=== PATIENT | male | born 1995 | race Caucasian/White ===

== ENCOUNTER → 2020-07-12 | Outpatient (CLI) | payer OTHER, SELFPAY | END | disposition home or self-care (01) | LOC: LABSPEC 15:34 | PROVIDERS: PCP Family Medicine; Visit Provider Physician Assistant Surgical | DX: R50.9 Fever, unspecified (principal) | CPT/HCPCS: 87635; U0005; U0003 ==

== ENCOUNTER 2020-07-31 18:27 | Emergency (ER) | payer OTHER, SELFPAY ==
[2020-07-31 18:30] VITALS: BP 139/88; PULSE 79; RESP 24; TEMP 36.7; O2SAT 99; BMI 42.5
--- NOTE | 2020-07-31 18:57 | CT_ITS ---
EXAM: CT ABDOMEN AND PELVIS WITHOUT INTRAVENOUS CONTRAST CLINICAL INDICATION: RIGHT FLANK PAIN, NAUSEA/VOMITING TECHNIQUE: Helically acquired images were obtained of the abdomen and pelvis without intravenous contrast. This CT exam was performed using one or more of the following dose reduction techniques: automated exposure control, adjustment of the mA and/or kV according to patient size, and/or use of iterative reconstruction technique. This report was created using [employer] report generation technology. COMPARISON: 01/21/2015 FINDINGS: LOWER THORAX: Unremarkable. Lung bases are clear. No cardiomegaly. No significant pericardial effusion. ABDOMEN: LIVER: Unremarkable. Homogeneous. GALLBLADDER AND BILE DUCTS: Unremarkable. No calcified gallstones. No gallbladder distention or wall edema. No intra- or extrahepatic biliary ductal dilation. PANCREAS: Unremarkable. No focal cystic mass. SPLEEN: Mild splenomegaly. ADRENALS: Unremarkable. No nodules. KIDNEYS AND URETERS: Mild right hydronephrosis with 4 mm calculus of the proximal right ureter at superior L4 endplate. Normal renal size and position. STOMACH AND BOWEL: Unremarkable. No stomach or bowel distention. No focal inflammatory change. PELVIS: APPENDIX: No evidence of acute appendicitis. BLADDER: Unremarkable. REPRODUCTIVE: Unremarkable as visualized. No mass. ABDOMEN and PELVIS: INTRAPERITONEAL SPACE: Unremarkable. No ascites or other fluid collection. No free air. BONES/JOINTS: Unremarkable. No suspicious lytic or blastic abnormality. SOFT TISSUES: Mild bilateral gynecomastia. No discrete abdominal or pelvic wall hernia. VASCULATURE: Unremarkable. Abdominal aorta is non-dilated. LYMPH NODES: Unremarkable. No enlarged lymph nodes. CT/Abdomen/Pelvis without Cont IMPRESSION: 1. 4 mm proximal right ureter calculus with mild hydronephrosis. 2. Mild bilateral gynecomastia. 3. Mild splenomegaly. Electronically Signed: Robb Puente MD ([place]) at 19:51 EST , Service support ,
--- NOTE | 2020-07-31 18:58 | ED.VISSUMM ---
- ER Visit Summary Date of Service: 07/31/20 Chief Complaint: Right flank pain History of Present Illness: The patient is a 24 M with a past medical history. Patient states he had sudden onset right flank pain has been continuous since 1130 last night. Associated nausea vomiting today. No fever or chills. No dysuria. No prior history. No history of kidney stones. No trauma. Physical Examination: Young male plan pain vital signs stable afebrile. HEENT exam unremarkable. Neck nontender no lymphadenopathy. Lungs are clear. Heart regular rhythm no murmur. Abdomen soft nontender normal bowel sounds no peritoneal signs. Back nontender no CVA tenderness. Extremities moves all 4. No edema. Neurologically is awake alert with no focal motor deficits. Test Results: CBC white count 1.5. Hemoglobin 15. Chemistries normal normal creatinine gap. Patient has blood consistent with a kidney stone in the urinalysis. CT flank without contrast shows a right mid ureter 4 mm ureteral calculi with hydronephrosis. There is also incidental finding of mild splenomegaly. This is read by the radiologist and reviewed by me. Repeat exam the patient is doing well at 8:11 PM. Currently is pain-free. I went over all his test results of both he and his significant other. Emergency Department Course and Treatment: Young male acute right flank pain suspect kidney stone versus other etiologies. Treated with IV Dilaudid, IV Toradol, IV Zofran and IV fluids. CAT scan labs being obtained. Treatment Plan: [place] and Motrin for pain. Strain urine for stone. Plenty of fluids. Return if worse. Follow-up your primary as needed. Disposition: discharge Impression: Acute right flank pain secondary to right 4 mm mid ureteral calculi with hydronephrosis This note was generated with [employer] dictation software. It may contain incorrect words, spelling, and punctuation that were not noted in review of the chart prior to signing ED Disposition - Plan for ED Patient: Referrals: Israel Duarte MD [Primary Care Provider] -
[2020-07-31] MEDS: Ketorolac 30 MG/ML Syringe IV (19:05)
[2020-07-31] MEDS: Ondansetron 4 MG/2 ML Vial IV (19:05)
[2020-07-31] MEDS: 0.9% Normal Saline 1,000 ML 1000 ML IV (19:05)
[2020-07-31] MEDS: HYDROmorphone 1 MG/ML Syringe IV (19:06)
[2020-07-31 19:12] LABS: Absolute Lymphocyte Count 4.07 X10^3/uL (0.83-4.51); Basophil# 0.02 X10^3/uL; Basophil% 0.2 % (0-1); Eosinophil# 0.31 X10^3/uL; Eosinophils% 2.7 % (0-5); Hematocrit 46.6 % (40-54); Hemoglobin 15.5 g/dL (13.0-16.5); Lymphocyte # 4.07 X10^3/ul (4.0); Lymphocyte % 35.5 % (19-41); Mean Corp Hgb Conc 33.3 g/dL (32-36); Mean Corpuscular Hgb 27.5 pg (27.0-32.0); Mean Corpuscular Volume 82.6 fL (80-94); Mean Platelet Vol. 10.6 fl (6.2-12.0); Monocyte# 1.01 X10^3/uL; Monocyte% 8.8 % (0-10); NRBC Flagged by Analyzer 0 % (0-5); Neutrophil # 6.04 X10^3/uL (2.7-7.7); Neutrophil % 52.5 % (47-70); Platelet Count 243 K/mm3 (150-450); RBC Distribution Width CV 13.2 % (11.6-14.6); RBC Distribution Width SD 39.2 fl (35.1-43.9); Red Blood Count 5.64 M/mm3 (4.6-6.2); White Blood Count 11.5 K/mm3 (4.4-11.0)
[2020-07-31 19:21] LABS: Anion Gap 7 (5-15); BUN 16 mg/dL (7-18); BUN/Creat Ratio 15.7 RATIO (10-20); Calcium,Total 9.1 mg/dL (8.5-10.1); Chloride 107 mmol/L (98-107); Creatinine, Serum 1.02 mg/dL (0.70-1.30); EST Glomerular Filtration Rate 93 mL/min (>60); Est Glom Filt Rate - Afr Amer 113 mL/min (>60); Glucose 141 mg/dL (74-106); Potassium 3.6 mmol/L (3.5-5.1); Sodium Level 139 mmol/L (136-145)
[2020-07-31 20:00] VITALS: RESP 16
[2020-07-31 20:04] LABS: Color, Urine Yellow (Yellow); Glucose, Dipstick Normal (Normal); Ketone-Dipstick Negative (Negative); Leukocyte Esterase-Dipstick Negative /ul (Negative); Mucous, Urine 0 SEEN /hpf (<or=2+); Nitrite-Dipstick Negative (Negative); Occult Blood-Urine 50 /ul (Negative); Protein-Dipstick Negative (Negative); Specific Gravity, Urine 1.025 (1.002-1.030); Squamous Epithelial Cells - UA 0 SEEN /hpf (0-5); Urine Bilirubin Dipstick Negative (Negative); Urine Clarity Clear (Clear); Urine Urobilinogen Normal (Normal); White Blood Cells 0 SEEN /hpf (0-5)
[2020-07-31 20:11] LABS: Bacteria RARE /hpf (None Seen); Red Blood Cells-Urine 0-5 SEEN /hpf (0-5)
--- NOTE | 2020-07-31 20:17 | DCINST.ED_ITS ---
ED Disposition - Plan for ED Patient: Disposition: Home or Assisted Living Instructions: ED Kidney Stone w/ Colic Prescriptions: Hydrocodone Bitart/Apap 5-325 [[place] 5MG-325MG] 1 - 2 tab PO Q4H PRN PRN 4 Days #14 tab PRN Reason: Pain Prescription Printed Referrals: Israel Duarte MD [Primary Care Provider] - 3-5 Days if not improving Additional Instructions: Plenty of Fluids and rest. [place] which is a narcotic pain medication for pain and Motrin. Strain your urine for the past stone. Follow-up with not improving. Return to the emergency department if intractable pain, intractable vomiting or fever.
== END 2020-07-31 20:28 | disposition home or self-care (01) ==
PROVIDERS: Emergency Provider Emergency Medicine; PCP Family Medicine
DX: N13.2 Hydronephrosis with renal and ureteral calculous obstruction (principal); R16.1 Splenomegaly, not elsewhere classified
CPT/HCPCS: 74176; 80048; 81001; 85025; 96361; 96374; 96375; 99285; J7030; A4216; J2405

== ENCOUNTER 2020-08-03 06:44 | Emergency (ER) | payer OTHER, SELFPAY ==
[2020-08-03 06:44] VITALS: BP 161/95; PULSE 109; RESP 18; TEMP 36.8; O2SAT 97; BMI 43.2
--- NOTE | 2020-08-03 07:10 | CT_ITS ---
STUDY: CT ABDOMEN AND PELVIS WITHOUT CONTRAST REASON FOR EXAM: Male, 24 years old. RIGHT FLANK PAIN. known stone on right 4 days ago RADIATION DOSAGE (If Supplied By Facility): CTDIvol = ( 32.59 ) mGy, DLP = ( 2019.27 ) mGycm TECHNIQUE: Transaxial images were obtained from the dome of the diaphragm to the symphysis pubis without oral contrast, and without intravenous contrast. Sagittal and coronal images were reconstructed. Individualized dose optimization techniques were used for this CT. COMPARISON: 07/31/2019. FINDINGS: Lung bases: Unremarkable. Heart: Unremarkable. Liver: Mild hepatic steatosis. Gallbladder/biliary ducts: Unremarkable. Pancreas: Unremarkable. Spleen: Mild splenomegaly. Adrenal glands: Unremarkable. Kidneys/ureters/bladder: Migration of previously seen 4 mm proximal ureteral stone now residing at the ureterovesicular junction (axial image 183 series 2). Moderate right hydroureteronephrosis with perinephric/periureteral fat stranding. Normal left kidney and ureter. Normal urinary bladder. Prostate: Unremarkable. Large bowel/small bowel: No acute large bowel or small bowel process. Appendix: Unremarkable (axial image 146 series 2). Gastroesophageal junction/stomach: Unremarkable. Retroperitoneum/lymph nodes: No intra-abdominal free air. No ascites. No pathologically enlarged lymph nodes. Vascular: Unremarkable. Osseous structures: Minimal degenerative features. No acute process. Subcutaneous/soft tissues: Fat-containing umbilical hernia. Gynecomastia. No acute process. CT/Abdomen/Pelvis without Cont IMPRESSION: 4 mm right UVJ stone with moderate right hydroureteronephrosis (migrated distally from prior exam) Right-sided perinephric/periureteral fat stranding (correlate urinalysis) Additional nonemergent findings as above Electronically Signed: Fredis Franks DO at 8:02 EST Tel , Service support ,
--- NOTE | 2020-08-03 07:12 | ED.DCSUM_ITS ---
- ER Visit Summary Date of Service: 08/03/20 Chief Complaint: Right flank pain History of Present Illness: The patient is a 24 M recent diagnosis with a right mid ureteral 4 mm stone on 07/31/2020. He was discharged home and was doing well the basis since that time he has had continued pain is worse in the last 24 hours. Nausea and vomiting yesterday. No fever. No gross hematuria. He is still urinating. Denies other complaints. Was written for [place] on his most recent ER visit diagnosis and states is not controlling his pain. Physical Examination: Male complain of pain vital signs stable afebrile. HEENT exam unremarkable. Lungs clear to auscultation bilaterally. Heart regular rhythm rate about 105-1 10 no murmur. Abdomen soft nontender normal bowel sounds no peritoneal signs. Moving all 4 extremities. No edema. Back nontender no CVA tenderness. Neurologically is awake alert with no focal motor deficits. Test Results: CBC shows a white count 11.4. Hemoglobin 15. Chemistries unremarkable normal creatinine and gap of 11, 1.1 and 5. Showed small blood no signs of infection. CT flank showed the same 4 mm stone that was previously right mid ureter now at the right UVJ just proximal to the bladder. There is moderate hydronephrosis and hydroureter. I discussed this with the patient and urology and are comfortable with him being discharged home. She is pain-free on repeat exam. Emergency Department Course and Treatment: Young male with continued right flank pain after being diagnosed with a right mid ureteral calculi approximately 3 to 4 days ago. He will be treated with IV fluids, Zofran for nausea, IV Toradol and IV Dilaudid for pain. Repeat labs and CAT scan are being obtained. Treatment Plan: He has [place] at home for pain. I also written for Toradol. Katey jacintoer and follow-up with urology as needed return if worse. Disposition: Discharge Impression: Acute and continued right flank pain Al to migrating right UVJ 4 mm stone with hydroureter and hydronephrosis Recently diagnosed with 4 mm right mid ureteral stone This note was generated with [employer] dictation software. It may contain incorrect words, spelling, and punctuation that were not noted in review of the chart prior to signing ED Disposition - Plan for ED Patient: Disposition: Home or Assisted Living Instructions: ED Kidney Stone w/ Colic Prescriptions: Ketorolac [Toradol] 10 mg PO Q4H #7 tab Prescription Printed Referrals: Henry Estrada MD [STAFF PHYSICIAN] - 1-2 Days if not improving Additional Instructions: Your stones are ready down by your bladder it should pass in your bladder and be urinated out in the next 1 to 2 days. Continue your [place] for pain and Toradol. Plenty of fluids. Follow-up with Dr. Michael Estrada as needed for urology. Strain your urine to see if the stone passes.
[2020-08-03] MEDS: Ketorolac 30 MG/ML Syringe IV (07:25)
[2020-08-03] MEDS: HYDROmorphone 1 MG/ML Syringe IV (07:25)
[2020-08-03] MEDS: Ondansetron 4 MG/2 ML Vial IV (07:25)
[2020-08-03] MEDS: 0.9% Normal Saline 1,000 ML 1000 ML IV (07:28)
[2020-08-03 07:30] LABS: Absolute Lymphocyte Count 1.25 X10^3/uL (0.83-4.51); Absolute Neutrophil Count 9.1 X10^3/uL (2.0-7.7); Basophil# 0.01 X10^3/uL; Basophil% 0.1 % (0-1); Eosinophil# 0.04 X10^3/uL; Eosinophils% 0.4 % (0-5); Hematocrit 44.8 % (40-54); Hemoglobin 15.2 g/dL (13.0-16.5); Lymphocyte # 1.25 X10^3/ul (4.0); Mean Corp Hgb Conc 33.9 g/dL (32-36); Mean Corpuscular Volume 82.7 fL (80-94); Mean Platelet Vol. 10.1 fl (6.2-12.0); Monocyte# 0.96 X10^3/uL; Monocyte% 8.4 % (0-10); NRBC Flagged by Analyzer 0 % (0-5); Neutrophil % 79.7 % (47-70); Platelet Count 213 K/mm3 (150-450); RBC Distribution Width CV 13.2 % (11.6-14.6); RBC Distribution Width SD 39.5 fl (35.1-43.9); Red Blood Count 5.42 M/mm3 (4.6-6.2); White Blood Count 11.4 K/mm3 (4.4-11.0)
[2020-08-03 07:40] LABS: Bacteria 0 SEEN /hpf (None Seen); Mucous, Urine 0 SEEN /hpf (<or=2+); Red Blood Cells-Urine 0 SEEN /hpf (0-5); White Blood Cells 0 SEEN /hpf (0-5)
[2020-08-03 07:45] LABS: Color, Urine Yellow (Yellow); Glucose, Dipstick Normal (Normal); Ketone-Dipstick 5 mg/dl (Negative); Leukocyte Esterase-Dipstick Negative /ul (Negative); Nitrite-Dipstick Negative (Negative); Occult Blood-Urine 25 /ul (Negative); Protein-Dipstick Negative (Negative); Urine Bilirubin Dipstick Negative (Negative); Urine Clarity Clear (Clear); Urine Urobilinogen Normal (Normal)
[2020-08-03 07:46] LABS: Anion Gap 5 (5-15); BUN 11 mg/dL (7-18); BUN/Creat Ratio 9.4 RATIO (10-20); Calcium,Total 9.1 mg/dL (8.5-10.1); Chloride 102 mmol/L (98-107); Creatinine, Serum 1.17 mg/dL (0.70-1.30); EST Glomerular Filtration Rate 80 mL/min (>60); Est Glom Filt Rate - Afr Amer 96 mL/min (>60); Estimated Creatinine Clearance 111.24 ml/min; Glucose 103 mg/dL (74-106); Potassium 3.8 mmol/L (3.5-5.1); Sodium Level 135 mmol/L (136-145)
[2020-08-03 07:55] LABS: Squamous Epithelial Cells - UA 0-5 SEEN /hpf (0-5)
--- NOTE | 2020-08-03 07:55 | ED.DEP ---
ED Disposition - Plan for ED Patient: Disposition: Home or Assisted Living Instructions: ED Kidney Stone w/ Colic Prescriptions: Ketorolac [Toradol] 10 mg PO Q4H #7 tab Prescription Printed Referrals: Henry Estrada MD [STAFF PHYSICIAN] - 1-2 Days if not improving Additional Instructions: Your stones are ready down by your bladder it should pass in your bladder and be urinated out in the next 1 to 2 days. Continue your [place] for pain and Toradol. Plenty of fluids. Follow-up with Dr. Michael Estrada as needed for urology. Strain your urine to see if the stone passes.
[2020-08-03 08:36] VITALS: BP 146/81; PULSE 104; RESP 15; O2SAT 98
== END 2020-08-03 08:37 | disposition home or self-care (01) ==
PROVIDERS: Emergency Provider Emergency Medicine; PCP Family Medicine
DX: N13.2 Hydronephrosis with renal and ureteral calculous obstruction (principal); Z87.442 Personal history of urinary calculi
CPT/HCPCS: 74176; 80048; 81001; 85025; 96361; 96374; 96375; 99283; J7030; A4216; J2405

== ENCOUNTER 2021-04-08 11:32 | Emergency (ER) | payer OTHER, SELFPAY ==
[2021-04-08 11:32] VITALS: BP 148/75; PULSE 88; RESP 18; TEMP 36.5; O2SAT 97; BMI 38.5
--- NOTE | 2021-04-08 11:40 | RAD_ITS ---
STUDY: X-RAY - LEFT ANKLE REASON FOR EXAM: Left ankle pain and swelling, left ankle injury. TECHNIQUE: 3 view(s) of the ankle. COMPARISON: None. FINDINGS: Normal visualized distal tibia and fibula. Normal medial and lateral malleoli. There is a tibiotalar joint effusion. Normal visualized talus and calcaneus. The visualized subtalar, talonavicular, calcaneocuboid and tarsal articulations are normal. There is soft tissue swelling overlying the lateral malleolus. RAD/Ankle min 3 Views IMPRESSION: Tibiotalar joint effusion. No demonstrated fracture. Electronically Signed: Sampson Beauchamp MD at 12:12 EDT Tel , Service support ,
[2021-04-08 13:20] VITALS: PULSE 78; RESP 14
--- NOTE | 2021-04-08 13:29 | EX.ED.DYSGE1 ---
HPI History of Present Illness Chief Complaint: Lower Extremity Injury Informant: patient Narrative Narrative: 25-year-old male presenting with left ankle pain. Patient states he was coming down off a ladder and slipped and fell down approximately 2 steps. He did not hit his head or lose consciousness. He complains of left ankle pain. Denies other injuries. He has been able to ambulate with pain. PFSH PFSH Medical History no medical history Home Medications NK 04/08/21 [History Last Taken Unknown] Allergy/AdvReac Type Severity Reaction Status Date / Time No Known Allergies Allergy Verified 04/08/21 11:32 Social History Smoking Status: Former smoker ROS ROS ED Constitutional Constitutional ED: Denies fever(s) Cardiovascular Cardiovascular: Denies chest pain Respiratory/Chest Respiratory/Chest: Denies dyspnea Gastrointestinal Gastrointestinal: Denies abdominal pain Musculoskeletal Musculoskeletal: Reports other Details: left ankle pain ; Denies myalgias Integumentary Denies rash Neurologic Neurologic: Denies headache(s) EXAM Physical Exam Const Vital Signs: 04/08/21 11:32 04/08/21 13:20 Temperature 97.7 F L Temperature Source Temporal Pulse Rate 88 78 Respiratory Rate 18 14 Blood Pressure 148/75 H Blood Pressure Mean 99 Pulse Ox 97 Oxygen Delivery Method Room Air Positive well nourished and well developed General Appearance ED: well developed HEENT Reports normocephalic and head/scalp atraumatic Neck supple General: Negative for tenderness Chest Wall inspection of chest normal Resp normal respiratory effort Cardio regular rate and regular rhythm no CVA tenderness Extremity Extremity Narrative: Left lateral ankle tenderness and swelling. No fifth metatarsal tenderness. No Achilles tendon tenderness. No proximal fibula tenderness. Normal pulses. Neuro oriented x3 Sensorium / Orientation: alert Psych mental status grossly normal MDM MDM MDM Narrative Medical decision making narrative: Left ankle x-ray read by myself and radiology shows no demonstrated fracture. Patient is given Aircast, declines crutches. Advised to ice, elevate, use NSAIDs for pain. Advised to follow-up with primary care physician. Advised return to ED for worsening complaints. Radiography Diagnostic Testing: Clinical Impression(s) from Imaging Studies Ankle X-Ray 04/08/21 11:40 IMPRESSION: Tibiotalar joint effusion. No demonstrated fracture. Electronically Signed: Sampson Beauchamp MD at 12:12 EDT Tel , Service support , Discharge Plan Triage Chief Complaint: Lower Extremity Injury ED Provider: Saranya Lang Dx/Rx/DC Orders Clinical Impression: Left ankle sprain Instructions: ED Sprain Ankle W X Ray Prescriptions: No Action NK RF: 0 Primary Care Provider: Israel Duarte Referrals: Israel Duarte MD [Primary Care Provider] - Disposition Disposition: Home, Self Care
== END 2021-04-08 14:21 | disposition home or self-care (01) ==
LOC: ED 13:41
PROVIDERS: Emergency Provider Emergency Medicine; PCP Family Medicine
DX: S93.402A Sprain of unspecified ligament of left ankle, initial encounter (principal); W11.XXXA Fall on and from ladder, initial encounter; Y93.9 Activity, unspecified; Y92.9 Unspecified place or not applicable; Y99.9 Unspecified external cause status; Z87.891 Personal history of nicotine dependence
CPT/HCPCS: 73610; 99283

== ENCOUNTER 2021-07-09 10:15 | Emergency (ER) | payer OTHER, SELFPAY ==
[2021-07-09 10:16] VITALS: BP 176/100; PULSE 96; RESP 16; TEMP 36.2; O2SAT 99; BMI 38.7
--- NOTE | 2021-07-09 10:48 | RAD_ITS ---
STUDY: X-RAY CHEST REASON FOR EXAM: Male, 25 years old. chest pain TECHNIQUE: AP COMPARISON: None. FINDINGS: EKG leads project over the chest. The lungs are clear and expanded. There is no demonstrated pleural abnormality. Normal size heart. Normal mediastinum and cristina. Normal visualized pulmonary arteries. Normal visualized aortic arch and descending thoracic aorta. Normal visualized thoracic spine. Normal visualized ribs, clavicles, and shoulders. There is no demonstrated abnormality of the visualized soft tissue structures of the upper abdomen. RAD/Chest 1 View (Portable) IMPRESSION: Nonacute portable x-ray examination of the chest. Electronically Signed: Robb Puente MD ([place]) at 12:03 EST , Service support ,
--- NOTE | 2021-07-09 10:48 | EKG12_ITS ---
Test Reason : PALPS Blood Pressure : / mmHG Vent. Rate : 084 BPM Atrial Rate : 084 BPM P-R Int : 154 ms QRS Dur : 098 ms QT Int : 364 ms P-R-T Axes : 059 058 032 degrees QTc Int : 430 ms Sinus rhythm with occasional Premature ventricular complexes Otherwise normal ECG Confirmed by FANNY VINCENT, VIKKI ([id number]), society editor DANUTA MARTINEZ ([id number]) on 07/11/2021 11:17:55 AM Referred By: CORRINA Confirmed By:VIKKI ESCOBEDO MD
--- NOTE | 2021-07-09 10:54 | EX.ED.DYSGE1 ---
HPI History of Present Illness Chief Complaint: Palpitations Informant: patient Narrative Narrative: 25-year-old male states for the past couple days he has had a bubble sensation in his chest. He states that it is constant and he feels frequent sensation that a bubble is coming up out of his chest. He denies any pain with it no shortness of breath. He states he has not been taking any significant amount of caffeine or stimulants. He denies any fevers or chills. No history of heart issues. PFSH PFS Home Medications NK 04/08/21 [History Last Taken Unknown] Allergy/AdvReac Type Severity Reaction Status Date / Time No Known Allergies Allergy Verified 07/09/21 10:18 Social History Smoking Status: Former smoker ROS ROS ED Constitutional Constitutional ED: Denies chills, fever(s) or weight loss Eyes Eyes: Denies change in vision or diplopia ENT ENT ED: Denies ear pain, rhinorrhea or sore throat Cardiovascular Cardiovascular: Reports palpitations; Denies chest pain, orthopnea or racing heartbeat Respiratory/Chest Respiratory/Chest: Denies cough, dyspnea or orthopnea Gastrointestinal Gastrointestinal: Denies abdominal pain, diarrhea, nausea or vomiting Genitourinary Genitourinary ED: Denies dysuria, hematuria or urinary frequency Musculoskeletal Musculoskeletal: Denies arthralgias or myalgias Integumentary Denies abscess or rash Neurologic Neurologic: Denies headache(s) or weakness Psychiatric Psychiatric: Denies anxiety, depression, suicidal ideation or suicidal thoughts Endocrine Endocrinology: Denies polydipsia, polyphagia or polyuria Allergic/Immunologic Allergic/Immunologic ED: Denies mouth swelling, tongue swelling or urticaria EXAM Physical Exam Const Vital Signs: 07/09/21 10:16 Temperature 97.2 F L Temperature Source Temporal Pulse Rate 96 Respiratory Rate 16 Blood Pressure 176/100 H Blood Pressure Mean 125 Pulse Ox 99 Oxygen Delivery Method Room Air Positive well nourished, well developed and obese General Appearance ED: well developed Nutritional Appearance: obese HEENT Reports normocephalic, head/scalp atraumatic, TM's clear and moist mucous membranes Negative for trauma Tympanic Membrane ED: Yes TM's clear Eyes PERRL and EOMs intact bilaterally Neck no lymphadenopathy, supple and no JVD Resp normal respiratory effort and clear to auscultation bilaterally Cardio regular rate, regular rhythm and no murmurs GI normal to inspection, nondistended, normoactive bowel sounds and non-tender Palpation: soft Back/Spine no CVA tenderness and normal ROM Extremity normal to inspection General Extremety ED: Negative for edema General Extremity: Negative for edema Neuro oriented x3 and CN's II-XII intact bilaterally Sensorium / Orientation: alert Motor Exam: strength 5/5 throughout Psych mental status grossly normal Mood & Affect: Negative for depressed or tearful Skin no rashes or lesions noted and no wounds MDM MDM MDM Narrative Medical decision making narrative: While discussing with the patient he appears to be having frequent PACs on the monitor which is coinciding with his bubble sensation. Basic blood work was normal including TSH and magnesium and potassium. My interpretation of the chest x-ray is no acute process. At this point patient be discharged home. Instructions to follow-up with primary care or with cardiology. Lab Data Attestation: I reviewed the patient's lab results. Labs: Laboratory Results - last 24 hr 07/09/21 07/09/21 11:35 11:35 WBC 9.8 RBC 5.60 Hgb 15.6 Hct 45.7 MCV 81.6 MCH 27.9 MCHC 34.1 RDW Std Deviation 37.4 RDW Coeff of Shikha 12.7 Plt Count 232 MPV 9.6 Immature Gran % (Auto) 0.500 Neut % (Auto) 75.4 H Lymph % (Auto) 16.6 L [place] % (Auto) 6.2 Eos % (Auto) 1.1 Baso % (Auto) 0.2 Absolute Neuts (auto) 7.4 Absolute Lymphs (auto) 1.63 Nucleated RBC % 0 Sodium 137 Potassium 3.9 Chloride 104 Carbon Dioxide 28.0 Anion Gap 5 BUN 13 Creatinine 0.97 Estim Creat Clear Calc 133.00 Est GFR (MDRD) Af Amer 119 Est GFR (MDRD) Non-Af 99 BUN/Creatinine Ratio 13.4 Glucose 98 Calcium 9.2 Magnesium 2.1 Total Bilirubin 0.50 AST 24 ALT 50 Alkaline Phosphatase 69 Troponin I High Sens 5 Total Protein 7.9 Albumin 3.5 Globulin 4.4 H Albumin/Globulin Ratio 0.8 L TSH 1.55 EKG Initial EKG: Attestation: I personally reviewed and interpreted this EKG as follows: Comments: Sinus rhythm with PVC noted ventricular rate is 84 bpm Discharge Plan Triage Chief Complaint: Palpitations ED Provider: Karan Campbell Dx/Rx/DC Orders Clinical Impression: Heart palpitations, Atrial contractions, premature Instructions: ED Palpitations Prescriptions: No Action NK RF: 0 Primary Care Provider: Israel Duarte Referrals: Israel Duarte MD [Primary Care Provider] - 1-2 Weeks Juan Antonio Dumont MD [STAFF PHYSICIAN] - 1-2 Weeks (For cardiology evaluation) Disposition Disposition: Home, Self Care
[2021-07-09 11:47] LABS: Absolute Lymphocyte Count 1.63 X10^3/uL (0.83-4.51); Absolute Neutrophil Count 7.4 X10^3/uL (2.0-7.7); Basophil# 0.02 X10^3/uL; Basophil% 0.2 % (0-1); Eosinophil# 0.11 X10^3/uL; Eosinophils% 1.1 % (0-5); Hematocrit 45.7 % (40-54); Hemoglobin 15.6 g/dL (13.0-16.5); Lymphocyte # 1.63 X10^3/ul (0.83-4.51); Lymphocyte % 16.6 % (19-41); Mean Corp Hgb Conc 34.1 g/dL (32-36); Mean Corpuscular Hgb 27.9 pg (27.0-32.0); Mean Corpuscular Volume 81.6 fL (80-94); Mean Platelet Vol. 9.6 fl (6.2-12.0); Monocyte# 0.61 X10^3/uL; Monocyte% 6.2 % (0-10); NRBC Flagged by Analyzer 0 % (0-5); Neutrophil # 7.38 X10^3/uL (2.7-7.7); Neutrophil % 75.4 % (47-70); Platelet Count 232 K/mm3 (150-450); RBC Distribution Width CV 12.7 % (11.6-14.6); RBC Distribution Width SD 37.4 fl (35.1-43.9); White Blood Count 9.8 K/mm3 (4.4-11.0)
[2021-07-09 12:07] LABS: ALB/GLOB Ratio 0.8 RATIO (0.9-2.4); AST(SGOT) 24 U/L (15-37); Alanine Aminotransfer ALT/SGPT 50 U/L (16-61); Albumin, Serum 3.5 g/dL (3.2-5.0); Alkaline Phosphatase 69 U/L (45-117); Anion Gap 5 (5-15); BUN 13 mg/dL (7-18); BUN/Creat Ratio 13.4 RATIO (10-20); Calcium,Total 9.2 mg/dL (8.5-10.1); Chloride 104 mmol/L (98-107); Creatinine, Serum 0.97 mg/dL (0.70-1.30); EST Glomerular Filtration Rate 99 mL/min (>60); Est Glom Filt Rate - Afr Amer 119 mL/min (>60); Globulin 4.4 g/dL (2.2-4.2); Glucose 98 mg/dL (74-106); Magnesium 2.1 mg/dL (1.6-2.6); Potassium 3.9 mmol/L (3.5-5.1); Protein, Total 7.9 g/dL (6.4-8.2); Sodium Level 137 mmol/L (136-145); Thyroid Stim Hormone (TSH) 1.55 uIU/mL (0.358-3.74); Troponin-I HS 5 pg/mL (3.0-78.0)
[2021-07-09 12:51] VITALS: BP 113/87; PULSE 76
== END 2021-07-09 12:52 | disposition home or self-care (01) ==
PROVIDERS: Emergency Provider Emergency Medicine; PCP Family Medicine; Visit Provider Emergency Medicine
DX: I49.1 Atrial premature depolarization (principal); E66.9 Obesity, unspecified; Z68.38 Body mass index [BMI] 38.0-38.9, adult; Z87.891 Personal history of nicotine dependence
CPT/HCPCS: 71045; 80053; 83735; 84443; 84484; 85025; 93005; 99284; A4216

== ENCOUNTER 2021-11-03 12:18 | Emergency (ER) | payer OTHER, SELFPAY ==
[2021-11-03 12:19] VITALS: BP 156/83; PULSE 100; RESP 19; TEMP 37.6; O2SAT 100; BMI 43.4
--- NOTE | 2021-11-03 12:28 | EKG12_ITS ---
Test Reason : CP Blood Pressure : / mmHG Vent. Rate : 102 BPM Atrial Rate : 102 BPM P-R Int : 140 ms QRS Dur : 092 ms QT Int : 344 ms P-R-T Axes : 051 055 041 degrees QTc Int : 448 ms Sinus tachycardia Otherwise normal ECG Confirmed by FANNY VINCENT, VIKKI ([id number]), editorial cartoonist DANUTA MARTINEZ ([id number]) on 11/07/2021 1:25:25 PM Referred By: ANTHONY Confirmed By:VIKKI ESCOBEDO MD
--- NOTE | 2021-11-03 12:29 | ED.VIS.CHEST ---
HPI History of Present Illness Chief Complaint: Chest Pain Narrative Narrative: Patient who denies significant past medical history presents with heart palpitations and left arm numbness that began at 9-9 30 this morning, approximately 3 hours ago. He states that he works third shift and was trying to go to bed, and experienced a fast, pounding heart rate left arm numbness. States he may have been slightly short of breath, but denies any fevers or chills. No cough. He states he had loose stool last week which has resolved. He took a baby aspirin that his girlfriend gave him and presents to the emergency department because of the heart palpitations. He denies any exertional component to this. He states he had similar symptoms a few months ago and was diagnosed with palpitations. He denies any leg swelling. No DVT or PE risk factors. PFSH PFS Home Medications omeprazole 20 mg PO DAILY 11/03/21 [History Last Taken Unknown] Allergy/AdvReac Type Severity Reaction Status Date / Time No Known Allergies Allergy Verified 07/09/21 10:18 Social History Smoking Status: Former smoker ROS ROS ED ROS Narrative Constitutional: No fever, no chills. HEENT: No sore throat. No neck pain. No loss of vision. No rhinorrhea. Cardiovascular: No chest pain. Positive palpitations. No pedal edema. Respiratory: No cough, no shortness of breath. Abdominal: No abdominal pain. No nausea. No vomiting. Genitourinary: No dysuria. No hematuria. Musculoskeletal: No myalgias. No arthralgias. Neurologic: No headaches. No dizziness. No lightheadedness. [place] shaky. Left arm achiness/numbness Skin: No rash. No change in color. Psychiatric: No depression. No anxiety. EXAM Physical Exam Narrative Exam Narrative: Afebrile. Vital signs noted. HEENT: Normocephalic. Atraumatic. PERRL, EOMI. Neck soft and supple. No point tenderness or step off. Cardiovascular: Regular rate and rhythm with intermittent tachycardia. No murmurs, rubs, or gallops appreciated. Respiratory: No tachypnea. Lungs clear to auscultation bilaterally. Gastrointestinal: Abdomen soft, nontender, with normoactive bowel sounds. No rebound or guarding. Neurological: Awake. Alert. Nonfocal, nonlateralizing. Skin: No rash. Normal color. No pallor. Musculoskeletal: No pedal edema. Full range of motion extremities. Const Vital Signs: 11/03/21 12:19 11/03/21 12:23 11/03/21 12:37 Temperature 99.7 F H Temperature Source Temporal Pulse Rate 100 Respiratory Rate 19 H Respiratory Effort Short of Breath Blood Pressure 156/83 H Blood Pressure Mean 107 Pulse Ox 100 100 Oxygen Delivery Method Room Air Room Air 11/03/21 12:55 11/03/21 14:39 Temperature Temperature Source Pulse Rate 80 65 Respiratory Rate 18 15 Respiratory Effort Blood Pressure 138/78 H 115/69 Blood Pressure Mean 98 84 Pulse Ox 100 99 Oxygen Delivery Method Room Air Heart Score History: Slightly/Non-Suspicious ECG: Normal Age: </= 45 years Risk Factors: 1 or 2 Risk Factors Troponin: </= Normal Limit Score: 1 MDM MDM MDM Narrative Medical decision making narrative: Chest pain work-up was pursued. His baby aspirin was supplemented. His EKG demonstrates sinus tachycardia at 102 bpm without ectopy or acute ST changes. He has a low-grade temperature of 99.7?F. Pulse ox is 100% on room air without evidence of hypoxia. I will obtain serial troponins and a D-dimer along CBC and basic metabolic panel. Is slightly elevated white count of 12.1 which think is nonspecific, hemoglobin normal at 16.1, hematocrit 47.0, normal platelet count of 247. D-dimer is also negative at 0.41. Electrolyte panel is grossly unremarkable. Initial high-sensitivity troponin normal at 4. Repeat after 2 hours is less than 3. I do feel that he has been ruled out by biomarkers. He has low risk heart score. Chest x-ray is viewed by myself shows no evidence of pneumothorax, no infiltrate. However, radiology indicates bilateral infiltrates in the lower lungs, left greater than right. Patient is not showing any clinical signs of pneumonia. I do not feel antibiotics are indicated. He has no fever or cough. His pulse ox is 100% on room air. He does have history of COVID-19 in his EMR. I do think this may be an over read by radiology. Through shared decision making, antibiotics will not be administered. I feel he can be discharged safely home with follow-up to his primary care physician for possible referral to cardiology. In review of his EMR, he was seen earlier in the year and diagnosed with PACs. Disposition is discharged home in stable condition. Return instructions have been reviewed. Lab Data Attestation: I reviewed the patient's lab results. Labs: Laboratory Results - last 24 hr 11/03/21 11/03/21 11/03/21 12:30 12:30 12:30 WBC 12.1 H RBC 5.73 Hgb 16.1 Hct 47.0 MCV 82.0 MCH 28.1 MCHC 34.3 RDW Std Deviation 39.1 RDW Coeff of Shikha 13.2 Plt Count 247 MPV 10.1 Immature Gran % (Auto) 0.300 Neut % (Auto) 78.0 H Lymph % (Auto) 14.6 L Mccreary % (Auto) 6.4 Eos % (Auto) 0.5 Baso % (Auto) 0.2 Absolute Neuts (auto) 9.4 H Absolute Lymphs (auto) 1.77 Nucleated RBC % 0 D-Dimer Quant (PE/DVT) 0.41 Sodium 137 Potassium 3.9 Chloride 105 Carbon Dioxide 27.0 Anion Gap 5 BUN 18 Creatinine 0.98 Estim Creat Clear Calc 127.96 Est GFR (MDRD) Af Amer 118 Est GFR (MDRD) Non-Af 97 BUN/Creatinine Ratio 18.4 Glucose 79 Calcium 9.3 Troponin I High Sens 4 11/03/21 14:52 WBC RBC Hgb Hct MCV MCH MCHC RDW Std Deviation RDW Coeff of Shikha Plt Count MPV Immature Gran % (Auto) Neut % (Auto) Lymph % (Auto) Mccreary % (Auto) Eos % (Auto) Baso % (Auto) Absolute Neuts (auto) Absolute Lymphs (auto) Nucleated RBC % D-Dimer Quant (PE/DVT) Sodium Potassium Chloride Carbon Dioxide Anion Gap BUN Creatinine Estim Creat Clear Calc Est GFR (MDRD) Af Amer Est GFR (MDRD) Non-Af BUN/Creatinine Ratio Glucose Calcium Troponin I High Sens < 3 L Radiography Diagnostic Testing: Clinical Impression(s) from Imaging Studies Chest X-Ray 11/03/21 12:40 IMPRESSION: Bibasilar infiltrates more prominent at the left lung base. Electronically Signed: Juvencio Spaulding MD at 13:31 EDT , Discharge Plan Triage Chief Complaint: Chest Pain ED Provider: Charles Huber Dx/Rx/DC Orders Clinical Impression: Palpitations, Chest pain, Left arm pain Instructions: ED Chest Pain, Noncardiac, ED Myalgias, ED Palpitations Prescriptions: No Action omeprazole 20 mg Tablet,Delayed Release (Dr/Ec) 20 mg PO DAILY RF: 0 Stand Alone Forms: ED Work / School Excuse Primary Care Provider: Israel Duarte Referrals: Israel Duarte MD [Primary Care Provider] - 5-7 Days Disposition Disposition: Home, Self Care
[2021-11-03] MEDS: 0.9% Normal Saline 1,000 ML 1000 ML IV (12:35)
[2021-11-03] MEDS: Aspirin 81 MG TAB.CHEW 324 MG PO (12:35)
[2021-11-03 12:37] VITALS: O2SAT 100
[2021-11-03 12:39] LABS: Absolute Lymphocyte Count 1.77 X10^3/uL (0.83-4.51); Absolute Neutrophil Count 9.4 X10^3/uL (2.0-7.7); Basophil# 0.02 X10^3/uL; Basophil% 0.2 % (0-1); Eosinophil# 0.06 X10^3/uL; Eosinophils% 0.5 % (0-5); Hemoglobin 16.1 g/dL (13.0-16.5); Lymphocyte # 1.77 X10^3/ul (0.83-4.51); Lymphocyte % 14.6 % (19-41); Mean Corp Hgb Conc 34.3 g/dL (32-36); Mean Corpuscular Hgb 28.1 pg (27.0-32.0); Mean Platelet Vol. 10.1 fl (6.2-12.0); Monocyte# 0.77 X10^3/uL; Monocyte% 6.4 % (0-10); NRBC Flagged by Analyzer 0 % (0-5); Neutrophil # 9.44 X10^3/uL (2.7-7.7); Platelet Count 247 K/mm3 (150-450); RBC Distribution Width CV 13.2 % (11.6-14.6); RBC Distribution Width SD 39.1 fl (35.1-43.9); Red Blood Count 5.73 M/mm3 (4.6-6.2); White Blood Count 12.1 K/mm3 (4.4-11.0)
--- NOTE | 2021-11-03 12:40 | RAD_ITS ---
STUDY: X-RAY CHEST REASON FOR EXAM: Male, 25 years old. Chest pain TECHNIQUE: Single AP portable view of the chest. COMPARISON: Comparison is made with prior study 07/09/2021. FINDINGS: EKG electrodes are seen. Mild increased markings in both lower lobes worse on the left side suggestive of bibasilar infiltrates. There is no demonstrated pleural abnormality. Normal size heart. Normal mediastinum and cristina. Normal visualized pulmonary arteries. Normal visualized aortic arch and descending thoracic aorta. Normal visualized thoracic spine. Normal visualized ribs, clavicles, and shoulders. There is no demonstrated abnormality of the visualized soft tissue structures of the upper abdomen. RAD/Chest 1 View (Portable) IMPRESSION: Bibasilar infiltrates more prominent at the left lung base. Electronically Signed: Juvencio Spaulding MD at 13:31 EDT ,
[2021-11-03 12:51] LABS: D-Dimer Quantitative (DVT/PE) 0.41 FEU/ug/m (0.27-0.49)
[2021-11-03 12:55] VITALS: BP 138/78; PULSE 80; RESP 18; O2SAT 100
[2021-11-03 12:55] LABS: Anion Gap 5 (5-15); BUN 18 mg/dL (7-18); BUN/Creat Ratio 18.4 RATIO (10-20); Calcium,Total 9.3 mg/dL (8.5-10.1); Chloride 105 mmol/L (98-107); Creatinine, Serum 0.98 mg/dL (0.70-1.30); EST Glomerular Filtration Rate 97 mL/min (>60); Est Glom Filt Rate - Afr Amer 118 mL/min (>60); Estimated Creatinine Clearance 127.96 ml/min; Glucose 79 mg/dL (74-106); Potassium 3.9 mmol/L (3.5-5.1); Sodium Level 137 mmol/L (136-145); Troponin-I HS (w/2H Reflex) 4 pg/mL (3.0-78.0)
[2021-11-03 14:36] LABS: Reflex Troponin-HS? (from REC) Y
[2021-11-03 14:39] VITALS: BP 115/69; PULSE 65; RESP 15; O2SAT 99
[2021-11-03 15:16] LABS: Troponin-I HS < 3 pg/mL (3.0-78.0)
== END 2021-11-03 15:44 | disposition home or self-care (01) ==
PROVIDERS: Emergency Provider Emergency Medicine; PCP Family Medicine; Visit Provider Emergency Medicine
DX: R00.2 Palpitations (principal); R07.9 Chest pain, unspecified; M79.602 Pain in left arm; R20.0 Anesthesia of skin; Z79.899 Other long term (current) drug therapy; Z87.891 Personal history of nicotine dependence
CPT/HCPCS: 71045; 80048; 84484; 85025; 85379; 93005; 96360; 99285; J7030; A4216

== ENCOUNTER 2021-11-17 20:49 | Emergency (ER) | payer OTHER, SELFPAY ==
[2021-11-17 20:49] VITALS: BP 156/99; PULSE 87; RESP 15; TEMP 36.8; O2SAT 98; BMI 42.2
[2021-11-17 20:52] VITALS: BP 156/99; PULSE 87; RESP 15; TEMP 36.8; O2SAT 98
--- NOTE | 2021-11-17 21:09 | US_ITS ---
STUDY: ABDOMINAL ULTRASOUND - RIGHT UPPER QUADRANT REASON FOR VISIT: Male, 26 years old PAIN-ruq TECHNIQUE: Ultrasound evaluation of the right upper quadrant was performed with real-time and static avila-scale imaging. TECHNICAL QUALITY: Adequate. Pancreatic distal body and tail not well-visualized due to overlying bowel gas. COMPARISON: CT abdomen and pelvis 08/03/2020. FINDINGS: Liver: The liver measures 22.5 cm. There is diffusely increased echogenicity obscuring the periportal fat. The bile ducts are within normal limits. There is hepatic color flow. The direction of portal flow is hepatopetal. There is no demonstrated mass lesion. Gallbladder: Normal distended gallbladder. The gallbladder wall measures 2 mm. There is a negative sonographic Atwood''s sign. There is no pericholecystic fluid. There are no gallstones. Common Bile Duct (C.B.D.): The common bile duct measures 4 mm. Pancreas: Images of the pancreatic head and proximal body show mildly decreased echogenicity which may represent some edema as could be seen with pancreatitis. No mass. No peripancreatic fluid. No ductal dilation. Distal body and tail not well visualized. Right Kidney: Normal size of the right kidney. The right kidney measures 12.3 cm. Normal renal cortex. The right cortex measures 1.6 cm. There is no demonstrated renal mass or cyst. There is no right hydronephrosis. Normal hilar color flow. US/Gallbladder IMPRESSION: Hepatic steatosis with mildly enlarged liver. No focal mass. Limited visualization of pancreas suggest mildly decreased echogenicity. This may be within normal limits but could be seen with pancreatitis correlate with serum amylase and lipase level. Otherwise normal exam. Electronically Signed: Arpit Maloney DO at 22:38 EDT ,
--- NOTE | 2021-11-17 21:09 | EDS_ITS ---
HPI HPI - GI History of Present Illness Chief Complaint: Abd Pain Narrative Narrative: Patient with past medical history of palpitations, started Pepcid recently, presents with right upper quadrant abdominal pain that began at 930 this morning, almost 12 hours ago. He works third shift. He went home and ate hamburger helper for dinner. He fell asleep and awoke this afternoon at 230, almost 7 hours ago, with right upper quadrant abdominal pain. He is nauseated but did not vomit. He states his pain is better when he stands. Nothing necessarily makes it worse. He denies any prior past abdominal surgeries. No dysuria or hematuria. No problems with bowel movements. PFSH PFSH Medical History GERD (gastroesophageal reflux disease) Kidney stones Smoker Home Medications dicyclomine 20 mg PO TID PRN #20 tab 11/17/21 [Rx Last Taken Unknown] famotidine 40 mg PO DAILY 11/17/21 [History Last Taken Unknown] ondansetron 4 mg PO Q8H PRN #15 tab 11/17/21 [Rx Last Taken Unknown] Allergy/AdvReac Type Severity Reaction Status Date / Time No Known Allergies Allergy Verified 11/17/21 20:51 Social History Smoking Status: Former smoker ROS ROS ED ROS Narrative Constitutional: No fever, no chills. HEENT: No sore throat. No neck pain. No loss of vision. No rhinorrhea. Cardiovascular: No chest pain. No palpitations currently. No pedal edema. Respiratory: No cough, no shortness of breath. Abdominal: Right upper quadrant abdominal pain. Positive nausea. No vomiting. Genitourinary: No dysuria. No hematuria. Musculoskeletal: No myalgias. No arthralgias. Neurologic: No headaches. No dizziness. No lightheadedness. Skin: No rash. No change in color. Psychiatric: No depression. No anxiety. EXAM Physical Exam Narrative Exam Narrative: Afebrile. Vital signs noted. HEENT: Normocephalic. Atraumatic. PERRL, EOMI. Neck soft and supple. No point tenderness or step off. Cardiovascular: Regular rate and rhythm. No murmurs, rubs, or gallops appreciated. Respiratory: No tachypnea. Lungs clear to auscultation bilaterally. Gastrointestinal: Abdomen soft, mild tenderness to palpation right upper quadrant, negative Atwood sign, with normoactive bowel sounds. No rebound or guarding. Neurological: Awake. Alert. Nonfocal, nonlateralizing. Skin: No rash. Normal color. No pallor. Musculoskeletal: No pedal edema. Full range of motion extremities. Const Vital Signs: 11/17/21 20:49 11/17/21 20:52 Temperature 98.2 F 98.2 F Temperature Source Temporal Temporal Pulse Rate 87 87 Respiratory Rate 15 15 Blood Pressure 156/99 H 156/99 H Blood Pressure Mean 118 118 Pulse Ox 98 98 Oxygen Delivery Method Room Air Room Air MDM MDM MDM Narrative Medical decision making narrative: Patient will be bolused IV fluids and given ondansetron for his nausea. I will obtain a CBC, CMP, lipase, and ultrasound of the right upper quadrant. Patient has slightly elevated white count of 13,000 which I think is nonspecific, normal hemoglobin of 15.3, CMP shows normal electrolytes, anion gap low at 4 with a BUN of 15 and a normal creatinine of 1.0. Glucose appropriately elevated at 105. AST is low at 14 with a normal ALT of 39. Normal alk phos of 72. Lipase low at 62. Gallbladder ultrasound shows hepatic stay at ptosis with mild hepatomegaly. Gallbladder appears normal. At this point in time, he had been given morphine for analgesia. I do not feel that further narcotics are indicated. He states he was still having pain. He was given prescriptions for dicyclomine and ondansetron. His abdomen remains soft. He was told to start a clear liquid diet and advance as tolerated. He will follow-up with his primary care physician for possible referral to gastroenterology. I feel he can be discharged safely home with follow-up. Return instructions to the emergency department were reviewed. Disposition is discharged home in stable condition. Lab Data Attestation: I reviewed the patient's lab results. Labs: Laboratory Results - last 24 hr 11/17/21 11/17/21 21:35 21:35 WBC 13.0 H RBC 5.53 Hgb 15.3 Hct 45.6 MCV 82.5 MCH 27.7 MCHC 33.6 RDW Std Deviation 39.1 RDW Coeff of Shikha 13.0 Plt Count 207 MPV 9.6 Immature Gran % (Auto) 0.500 Neut % (Auto) 80.2 H Lymph % (Auto) 12.4 L [place] % (Auto) 5.5 Eos % (Auto) 1.2 Baso % (Auto) 0.2 Absolute Neuts (auto) 10.4 H Absolute Lymphs (auto) 1.61 Nucleated RBC % 0 Sodium 138 Potassium 4.0 Chloride 104 Carbon Dioxide 30.0 Anion Gap 4 L BUN 15 Creatinine 1.02 Estim Creat Clear Calc 121.85 Est GFR (MDRD) Af Amer 112 Est GFR (MDRD) Non-Af 92 BUN/Creatinine Ratio 14.7 Glucose 105 Calcium 9.1 Total Bilirubin 0.30 AST 14 L ALT 39 Alkaline Phosphatase 72 Total Protein 7.9 Albumin 3.6 Globulin 4.3 H Albumin/Globulin Ratio 0.8 L Lipase 62 L Radiography Diagnostic Testing: Clinical Impression(s) from Imaging Studies Gallbladder Ultrasound 11/17/21 21:09 IMPRESSION: Hepatic steatosis with mildly enlarged liver. No focal mass. Limited visualization of pancreas suggest mildly decreased echogenicity. This may be within normal limits but could be seen with pancreatitis correlate with serum amylase and lipase level. Otherwise normal exam. Electronically Signed: Arpit Maloney DO at 22:38 EDT , Discharge Plan Triage Chief Complaint: Abd Pain ED Provider: Charles Huber Dx/Rx/DC Orders Clinical Impression: Abdominal pain, RUQ, Nausea Instructions: Nausea Vomit Control, ED Abdominal Pain Unkn Cause Male... Prescriptions: New dicyclomine 20 mg tablet 20 mg PO TID PRN (Reason: abdominal pain) Qty: 20 RF: 0 ondansetron 4 mg tablet,disintegrating 4 mg PO Q8H PRN (Reason: nausea and vomiting) Qty: 15 RF: 0 No Action famotidine 40 mg tablet 40 mg PO DAILY RF: 0 Primary Care Provider: Israel Duarte Referrals: Israel Duarte MD [Primary Care Provider] - 3-5 Days if not improving Disposition Disposition: Home, Self Care
[2021-11-17 21:48] LABS: Absolute Lymphocyte Count 1.61 X10^3/uL (0.83-4.51); Absolute Neutrophil Count 10.4 X10^3/uL (2.0-7.7); Basophil# 0.03 X10^3/uL; Basophil% 0.2 % (0-1); Eosinophil# 0.16 X10^3/uL; Eosinophils% 1.2 % (0-5); Hematocrit 45.6 % (40-54); Hemoglobin 15.3 g/dL (13.0-16.5); Lymphocyte # 1.61 X10^3/ul (0.83-4.51); Lymphocyte % 12.4 % (19-41); Mean Corp Hgb Conc 33.6 g/dL (32-36); Mean Corpuscular Hgb 27.7 pg (27.0-32.0); Mean Corpuscular Volume 82.5 fL (80-94); Mean Platelet Vol. 9.6 fl (6.2-12.0); Monocyte# 0.72 X10^3/uL; Monocyte% 5.5 % (0-10); NRBC Flagged by Analyzer 0 % (0-5); Neutrophil % 80.2 % (47-70); Platelet Count 207 K/mm3 (150-450); RBC Distribution Width SD 39.1 fl (35.1-43.9); Red Blood Count 5.53 M/mm3 (4.6-6.2)
[2021-11-17] MEDS: Ondansetron 4 MG/2 ML Vial IV (21:48)
[2021-11-17] MEDS: 0.9% Normal Saline 1,000 ML 1000 ML IV (21:48)
[2021-11-17 22:04] LABS: ALB/GLOB Ratio 0.8 RATIO (0.9-2.4); AST(SGOT) 14 U/L (15-37); Alanine Aminotransfer ALT/SGPT 39 U/L (16-61); Albumin, Serum 3.6 g/dL (3.2-5.0); Alkaline Phosphatase 72 U/L (45-117); Anion Gap 4 (5-15); BUN 15 mg/dL (7-18); BUN/Creat Ratio 14.7 RATIO (10-20); Calcium,Total 9.1 mg/dL (8.5-10.1); Chloride 104 mmol/L (98-107); Creatinine, Serum 1.02 mg/dL (0.70-1.30); EST Glomerular Filtration Rate 92 mL/min (>60); Est Glom Filt Rate - Afr Amer 112 mL/min (>60); Estimated Creatinine Clearance 121.85 ml/min; Globulin 4.3 g/dL (2.2-4.2); Glucose 105 mg/dL (74-106); Lipase 62 U/L (73-393); Protein, Total 7.9 g/dL (6.4-8.2); Sodium Level 138 mmol/L (136-145)
[2021-11-17] MEDS: Morphine 4 MG/ML Syringe IV (22:12)
== END 2021-11-17 22:56 | disposition home or self-care (01) ==
PROVIDERS: Emergency Provider Emergency Medicine; PCP Family Medicine; Visit Provider Emergency Medicine
DX: R10.11 Right upper quadrant pain (principal); R11.0 Nausea; R74.8 Abnormal levels of other serum enzymes; K21.9 Gastro-esophageal reflux disease without esophagitis; Z79.899 Other long term (current) drug therapy; Z87.891 Personal history of nicotine dependence
CPT/HCPCS: 76705; 80053; 83690; 85025; 96361; 96374; 96375; 99284; J7030; A4216; J2405

== ENCOUNTER → 2021-11-18 | Outpatient (CLI) | payer OTHER, SELFPAY ==
[2021-11-18 15:35] LABS: Erythrocyte Sedimentation Rate 25 mm/hr (0-20)
[2021-11-22 16:08] LABS: Endomysial Antibody IgA Negative (Negative)
[2021-11-23 09:40] LABS: Deamidated Gliadin IgA 6 units (0-19); Deamidated Gliadin IgG 3 units (0-19); Immunoglobulin A 283 mg/dL (90-386); t-Transglutaminase IgA <2 U/mL (0-3)
[2021-11-27 02:06] LABS: Beef <0.10 kU/L (Class 0); Corn <0.10 kU/L (Class 0); Egg, Whole <0.10 kU/L (Class 0); Milk (Cow) <0.10 kU/L (Class 0); Peanut 0.12 kU/L (Class 0/I); Pork <0.10 kU/L (Class 0); Soybean <0.10 kU/L (Class 0); Wheat 0.12 kU/L (Class 0/I)
[2021-11-27 08:34] LABS: Chocolate <0.10 kU/L (Class 0)
== END | disposition home or self-care (01) ==
LOC: MFPLAB 12:06
PROVIDERS: PCP Family Medicine; Referring Provider Family Medicine; Visit Provider Family Medicine
DX: R10.13 Epigastric pain (principal)
CPT/HCPCS: 36415; 82784; 83516; 85652; 86003; 86005; 86255

== ENCOUNTER 2021-11-22 01:39 | Emergency (ER) | payer OTHER, SELFPAY ==
[2021-11-22 01:40] VITALS: BP 152/95; PULSE 74; RESP 17; TEMP 37.2; O2SAT 98; BMI 43.4
--- NOTE | 2021-11-22 01:54 | EDS_ITS ---
HPI History of Present Illness Chief Complaint: Palpitations Informant: patient Narrative Narrative: Patient states he is here for the same thing that he has been here several other times. He states ever since June he gets frequent palpitations. When he is hooked up on the monitor he can feel all the pauses in his heartbeat. What he points out is the occasional PVCs. He states today he got a popping feeling in his chest. If he bends down looks down and then looks up quickly he will get slightly dizzy but it only lasts for a few seconds and then resolves. He is not dizzy just sitting still. He is not actually short of breath. He is also had some dyspepsia. He has had some soft stools. He has been working through all these issues for about 5 or so months now. He states he had COVID in the beginning of the year and he has had symptoms ever since. He has not seen cardiology. He has not had a Holter monitor. Nothing has made this better or worse. He has seen his primary physician as well as us. PFSH PFSH Medical History GERD (gastroesophageal reflux disease) Kidney stones Smoker Home Medications dicyclomine 20 mg PO TID PRN #20 tab 11/17/21 [Rx Last Taken Unknown] famotidine 40 mg PO DAILY 11/17/21 [History Last Taken Unknown] ondansetron 4 mg PO Q8H PRN #15 tab 11/17/21 [Rx Last Taken Unknown] Allergy/AdvReac Type Severity Reaction Status Date / Time No Known Allergies Allergy Verified 11/22/21 01:47 Social History Smoking Status: Former smoker ROS ROS ED Constitutional Constitutional ED: Denies chills or fever(s) Eyes Eyes: Denies blurry vision or change in vision ENT ENT ED: Denies rhinorrhea or sore throat Cardiovascular Cardiovascular: Reports other Details: No pain but he did feel a pop sensation earlier. ; Denies chest pain or palpitations Respiratory/Chest Respiratory/Chest: Denies cough or dyspnea Gastrointestinal Gastrointestinal: Reports diarrhea; Denies abdominal pain, nausea or vomiting Genitourinary Genitourinary ED: Denies dysuria Musculoskeletal Musculoskeletal: Denies myalgias Integumentary Denies rash Neurologic Neurologic: Reports other Details: Transient vertigo with rapid changes in position. ; Denies headache(s) Endocrine Endocrinology: Denies polyuria Hematologic/Lymphatic Hematologic/Lymphatic: Denies easy bleeding or easy bruising Allergic/Immunologic Allergic/Immunologic ED: Denies urticaria EXAM Physical Exam Const Vital Signs: 11/22/21 01:40 11/22/21 01:45 Temperature 98.9 F Temperature Source Temporal Pulse Rate 74 Respiratory Rate 17 Respiratory Effort Normal Non-Labored Blood Pressure 152/95 H Blood Pressure Mean 114 Pulse Ox 98 Oxygen Delivery Method Room Air Positive well nourished and well developed General Appearance ED: well developed and NAD HEENT Reports moist mucous membranes normocephalic Eyes PERRL and EOMs intact bilaterally Neck no lymphadenopathy and supple Chest Wall inspection of chest normal Resp normal respiratory effort and clear to auscultation bilaterally Effort and Inspection: Negative for respiratory distress Auscultation: Negative for rales, rhonchi or wheezes Cardio regular rate and regular rhythm Rate: other Other Details: Patient does have PVCs. Each time 1 of these occurs he feels it. But his rhythm otherwise is totally normal. GI normal to inspection, nondistended, normoactive bowel sounds Back/Spine no CVA tenderness Extremity normal to inspection General Extremety ED: Negative for edema or tenderness General Extremity: Negative for edema Neuro Sensorium / Orientation: awake and alert Psych mental status grossly normal Skin no rashes or lesions noted MDM MDM MDM Narrative Medical decision making narrative: I have reviewed the blood work that is been done in recent visits. This year he has had TSH done. He has had troponins. He has had CBCs electrolytes. No sign of any acute abnormality. I do not think these need to be repeated again. I will do a chest x-ray because of the pop that he felt in his chest. EKG is done. EKG shows no acute process. No significant change from prior. Single view chest x-ray looked at by me shows no sign of pneumothorax infiltrate or acute abnormality. Cardiac silhouette looks within normal limits. We discussed options with the patient. We discussed that he is already had extensive blood work done. He has never had a Holter monitor. We will see if we can get him pl aced on this. I think his symptoms are related to PVCs and occasional PACs. Neither 1 of this are dangerous but they are certainly a nuisance for the patient. Holter monitor will will help us to find out if there is any potentially more dangerous dysrhythmia. He will also let us know that all his EKG changes are nondangerous and safe. We will refer him to cardiology. EKG Initial EKG: Comments: EKG done for palpitations read by me shows a normal sinus rhythm with overall rate of 93. There are frequent PVCs. No acute ST elevation or depression. ME interval, QRS duration and QTc are normal. Discharge Plan Triage Chief Complaint: Palpitations ED Provider: Jamil Cox Dx/Rx/DC Orders Clinical Impression: Heart palpitations Instructions: ED Palpitations Prescriptions: No Action famotidine 40 mg tablet 40 mg PO DAILY RF: 0 dicyclomine 20 mg tablet 20 mg PO TID PRN (Reason: abdominal pain) Qty: 20 RF: 0 ondansetron 4 mg tablet,disintegrating 4 mg PO Q8H PRN (Reason: nausea and vomiting) Qty: 15 RF: 0 Primary Care Provider: Israel Duarte Referrals: Georges Esocbar MD [STAFF PHYSICIAN] - As soon as possible Israel Duarte MD [Primary Care Provider] - As Needed Disposition Disposition: Home, Self Care
--- NOTE | 2021-11-22 01:54 | EKG12_ITS ---
Test Reason : DYSRHYTHMIA Blood Pressure : / mmHG Vent. Rate : 093 BPM Atrial Rate : 093 BPM P-R Int : 146 ms QRS Dur : 090 ms QT Int : 346 ms P-R-T Axes : 047 049 037 degrees QTc Int : 430 ms Sinus rhythm with sinus arrhythmia with occasional Premature ventricular complexes Otherwise normal ECG Confirmed by GERALD VINCENT, JASEN ([id number]), editorial intern MARCIAL BRODY ([id number]) on 11/22/2021 1:34:45 PM Referred By: PL Confirmed By:JASEN DUARTE MD
--- NOTE | 2021-11-22 01:54 | RAD_ITS ---
STUDY: X-RAY CHEST REASON FOR EXAM: Male, 26 years old. palpitations TECHNIQUE: Single AP portable view of the chest. 2:02 AM COMPARISON: Previous chest radiographs of 11/03/2021 and 07/09/2021. FINDINGS: The lungs are clear and expanded. There is no demonstrated pleural abnormality. The bibasilar infiltrates seen on prior chest radiograph of 11/03/2021 have resolved. Normal size heart. Normal mediastinum and cristina. Normal visualized pulmonary arteries. Normal visualized aortic arch and descending thoracic aorta. No acute osseous abnormality. There is no demonstrated abnormality of the visualized soft tissue structures of the upper abdomen. RAD/Chest 1 View (Portable) IMPRESSION: No acute cardiopulmonary disease process identified. Electronically Signed: Leopoldo Del Rio MD at 2:44 EDT ,
[2021-11-22 02:53] VITALS: BP 119/71; PULSE 84; RESP 17; O2SAT 94
== END 2021-11-22 02:55 | disposition home or self-care (01) ==
PROVIDERS: Emergency Provider Emergency Medicine; PCP Family Medicine; Visit Provider Emergency Medicine
DX: R00.2 Palpitations (principal); Z87.891 Personal history of nicotine dependence; Z79.899 Other long term (current) drug therapy; Z86.16 Personal history of COVID-19
CPT/HCPCS: 71045; 93005; 99282; A4216

== ENCOUNTER → 2021-12-12 | Outpatient (CLI) | payer OTHER, SELFPAY ==
--- NOTE | 2021-12-12 08:05 | RAD_ITS ---
INDICATION: EPIGASTRIC PAIN EXAMINATION/TECHNIQUE: Barium oral contrast , barium pill, and gas bubbles were administered to the patient. Total Fluoroscopic Time: 24 seconds AND number of Fluoroscopic Images: 10 COMPARISON: Chest radiograph from 11/22/2021. CT abdomen and pelvis from 08/03/2020. FINDINGS: No masses or strictures are identified. There is no hiatal hernia. The mucosal pattern is unremarkable. There is normal motility. Reflux was not elicited. RAD/Esophagus Dual Contrast IMPRESSION: Negative. Electronically Signed: Jose Munoz, at 9:29 EDT ,
== END | disposition home or self-care (01) ==
LOC: RAD 07:59
PROVIDERS: PCP Family Medicine; Referring Provider Family Medicine; Visit Provider Family Medicine
DX: R10.13 Epigastric pain (principal)
CPT/HCPCS: 74221

== ENCOUNTER → 2021-12-21 | Outpatient (CLI) | payer OTHER, SELFPAY ==
--- NOTE | 2021-12-21 13:46 | ECHOD_ITS ---
Reason For Study: Palpitations Procedure This was a 2D Doppler, Color Flow transthoracic echocardiogram. Exam performed in department. Left Ventricle Normal LV size. Left ventricular systolic function is normal. The estimated ejection fraction is 55 %. Normal diastology for age. No regional wall motion abnormalities noted. Right Ventricle Normal RV size. Normal systolic function. Atria Normal left atrium. Normal right atrium. Mitral Valve Normal mitral valve. Tricuspid Valve Normal tricuspid valve. Aortic Valve Normal aortic valve. Trisinus/trileaflet aortic valve. Pulmonic Valve Normal pulmonic valve. Great Vessels Normal aortic root. The pulmonary artery is normal size. Normal inferior vena cava. Pericardium/Pleural No pericardial effusion. MMode/2D Measurements & Calculations LVIDd: 4.9 cm IVSd: 0.98 cm Ao root diam: 3.2 cm LVIDs: 2.8 cm LVPWd: 1.2 cm LA dimension: 3.9 cm RVDd: 4.0 cm FS: 42.7 % LAV(MOD-bp): 62.8 ml LA A4 area: 20.3 cm2 RA A4 area: 16.6 cm2 LAV(MOD-bp) Indexed: 24.1 ml/m2 LAV(MOD-sp2): 60.9 ml LAV(MOD-sp4): 55.0 ml Time Measurements MV dec time: 0.22 sec Doppler Measurements & Calculations MV E max kole: 103.6 cm/sec Lat Peak E' Kole: 20.9 cm/sec Med Peak E' Kole: 12.4 cm/sec MV A max kole: 63.9 cm/sec E/E' lat: 5.0 E/E' med: 8.4 MV E/A: 1.6 MV V2 max: 95.8 cm/sec MV P1/2t max kole: 95.3 cm/sec Ao V2 max: 128.8 cm/sec MV max P.7 mmHg MV P1/2t: 91.5 msec Ao max P.6 mmHg MV V2 mean: 55.6 cm/sec MV dec slope: 305.1 cm/sec2 MV mean P.4 mmHg MVA(P1/2t): 2.4 cm2 MV V2 VTI: 24.7 cm LV V1 max: 112.1 cm/sec PA V2 max: 140.6 cm/sec LV V1 max P.0 mmHg ECHO/Echo Complete Interpretation Summary Normal LV size. Left ventricular systolic function is normal. The estimated ejection fraction is 55 %. Normal diastology for age. Structurally normal valves. Ordering Physician: Israel Duarte Referring Physician: Israel Duarte Performed By: Seven Castro RCS
== END | disposition home or self-care (01) ==
LOC: CVS 13:43
PROVIDERS: PCP Family Medicine; Referring Provider Family Medicine; Visit Provider Family Medicine
DX: R00.2 Palpitations (principal)
CPT/HCPCS: 93306

== ENCOUNTER → 2022-01-09 | Outpatient (CLI) | payer OTHER, SELFPAY ==
[2022-01-09 10:28] LABS: Anion Gap 9 (5-15); BUN 13 mg/dL (7-18); Calcium,Total 9.3 mg/dL (8.5-10.1); Chloride 99 mmol/L (98-107); Creatinine, Serum 0.93 mg/dL (0.70-1.30); EST Glomerular Filtration Rate 103 mL/min (>60); Est Glom Filt Rate - Afr Amer 125 mL/min (>60); Glucose 96 mg/dL (74-106); Magnesium 2.1 mg/dL (1.6-2.6); Potassium 3.9 mmol/L (3.5-5.1); Sodium Level 136 mmol/L (136-145); T4 Free Direct 1.15 ng/dL (0.76-1.46); Thyroid Stim Hormone (TSH) 2.46 uIU/mL (0.358-3.74)
== END | disposition home or self-care (01) ==
LOC: MFPLAB 08:15
PROVIDERS: PCP Family Medicine; Visit Provider Family Medicine
DX: I49.1 Atrial premature depolarization (principal)
CPT/HCPCS: 36415; 80048; 83735; 84439; 84443

== ENCOUNTER → 2022-01-13 | Outpatient (CLI) | payer OTHER, SELFPAY ==
[2022-01-13 12:31] LABS: Absolute Lymphocyte Count 2.94 X10^3/uL (0.83-4.51); Absolute Neutrophil Count 7.6 X10^3/uL (2.0-7.7); Basophil# 0.02 X10^3/uL; Basophil% 0.2 % (0-1); Eosinophil# 0.24 X10^3/uL; Eosinophils% 2.1 % (0-5); Hematocrit 46.8 % (40-54); Hemoglobin 15.7 g/dL (13.0-16.5); Lymphocyte # 2.94 X10^3/ul (0.83-4.51); Lymphocyte % 25.5 % (19-41); Mean Corp Hgb Conc 33.5 g/dL (32-36); Mean Corpuscular Hgb 28.3 pg (27.0-32.0); Mean Corpuscular Volume 84.5 fL (80-94); Mean Platelet Vol. 10.7 fl (6.2-12.0); Monocyte# 0.74 X10^3/uL; Monocyte% 6.4 % (0-10); NRBC Flagged by Analyzer 0 % (0-5); Neutrophil # 7.57 X10^3/uL (2.7-7.7); Neutrophil % 65.5 % (47-70); Platelet Count 241 K/mm3 (150-450); RBC Distribution Width CV 13.2 % (11.6-14.6); RBC Distribution Width SD 41.3 fl (35.1-43.9); Red Blood Count 5.54 M/mm3 (4.6-6.2); White Blood Count 11.6 K/mm3 (4.4-11.0)
== END | disposition home or self-care (01) ==
LOC: MFPLAB 10:33
PROVIDERS: PCP Family Medicine; Referring Provider Family Medicine; Visit Provider Family Medicine
DX: R00.2 Palpitations (principal)
CPT/HCPCS: 36415; 85025; 86141

== ENCOUNTER → 2022-01-16 | Outpatient (CLI) | payer OTHER, SELFPAY ==
[2022-01-16 10:25] LABS: Erythrocyte Sedimentation Rate 15 mm/hr (0-20)
[2022-01-16 10:46] LABS: Lipase 65 U/L (73-393)
== END | disposition home or self-care (01) ==
LOC: MFPLAB 08:19
PROVIDERS: PCP Family Medicine; Referring Provider Family Medicine; Visit Provider Family Medicine
DX: R00.2 Palpitations (principal)
CPT/HCPCS: 36415; 83690; 85652

== ENCOUNTER 2022-01-20 13:24 | Emergency (ER) | payer OTHER, SELFPAY ==
[2022-01-20 13:25] VITALS: BP 165/89; PULSE 90; RESP 16; TEMP 36.7; O2SAT 99; BMI 39.5
--- NOTE | 2022-01-20 13:44 | RAD_ITS ---
STUDY: X-RAY CHEST REASON FOR EXAM: Male, 26 years old. Chest pain TECHNIQUE: Single AP portable view of the chest. COMPARISON: Comparison is made with prior study of 11/03/2021. FINDINGS: EKG electrodes are seen. The lungs are clear and expanded. Scattered calcified granulomas. There is no demonstrated pleural abnormality. Normal size heart. Normal mediastinum and cristina. Normal visualized pulmonary arteries. Normal visualized aortic arch and descending thoracic aorta. Normal visualized thoracic spine. Normal visualized ribs, clavicles, and shoulders. There is no demonstrated abnormality of the visualized soft tissue structures of the upper abdomen. RAD/Chest 1 View (Portable) IMPRESSION: No acute abnormality is seen. Electronically Signed: Juvencio Spaulding MD at 14:26 EDT ,
--- NOTE | 2022-01-20 13:45 | EDS_ITS ---
HPI History of Present Illness Chief Complaint: Chest Pain Detail of Chief Complaint: Right-sided. Onset/Context/Timing Onset: Days Activity at onset: gradual Timing: Continuous Quality: Positive for Aching Location: Right Chest Current Severity: Mild Maximum Severity: Mild Worsened By: Nothing Relieved By: Nothing Associated Symptoms: Negative for Nausea, Vomiting, Diaphoresis, Dyspnea, Cough, Fever, Lightheadedness, Acid Reflux or Palpitations Narrative Narrative: 18-year-old male history of COVID in June. Also history of kidney stones PVCs. States that he has had palpitations for about 3 months. And he has developed right-sided chest discomfort. Denies any hemoptysis. He himself is never had DVT or PEs but his dad currently is being treated for pulmonary emboli due to COVID. Denies any cough or fever. Denies any hemoptysis. Denies any leg pain or swelling. He has had no recent travel, surgery or immobilization. Prior Similar Symptoms: No Recent Illness/Hospitalization: No CVD Risk Factors: Negative for Hypertension, Diabetes, Hypercholesterolemia, Family History 1' </=55 or Smoking PE Risk Factors: Negative for Recent Travel/Surgery, Recent Immobilization, Prior DVT or PE, Cancer or OCP + Smoking + >/=35 TAD Risk Factors: Negative for Marfan's Syndrome [facility] Medical History GERD (gastroesophageal reflux disease) History of COVID-19 (07/2021) Kidney stones Multiple premature ventricular complexes Obesity Home Medications fluticasone propionate 50 mcg/actuation nasal spray,suspension 2 spray intranasal DAILY 12/12/21 [History Last Taken Unknown] dicyclomine 10 mg capsule 10 mg PO .COMPLEX 01/17/22 [History Last Taken Unknown] Allergy/AdvReac Type Severity Reaction Status Date / Time metoprolol AdvReac Other Verified 01/20/22 13:30 Family History Father CAD (coronary artery disease) Diabetes CVA (cerebral vascular accident) Hypertension Hyperlipidemia Mother Arthritis Surgical History Brain tumor Social History Smoking Status: Former smoker ROS ROS ED ROS Narrative Right side chest discomfort. Review of Systems ROS Unobtainable: Denies due to encephalopathy Constitutional Constitutional ED: Denies chills or fever(s) Eyes Eyes: Reports none ENT ENT ED: Denies ear pain Cardiovascular Cardiovascular: Reports chest pain and palpitations; Denies racing heartbeat Respiratory/Chest Respiratory/Chest: Denies cough or dyspnea Gastrointestinal Gastrointestinal: Denies abdominal pain or constipation Genitourinary Genitourinary ED: Denies dysuria or hematuria Musculoskeletal Musculoskeletal: Denies arthralgias Integumentary Denies abscess Neurologic Neurologic: Denies headache(s) Psychiatric Psychiatric: Denies anxiety Endocrine Endocrinology: Denies cold intolerance Hematologic/Lymphatic Hematologic/Lymphatic: Denies easy bleeding Allergic/Immunologic Allergic/Immunologic ED: Denies mouth swelling EXAM Physical Exam Narrative Exam Narrative: Well-appearing 26-year-old male vital signs are stable afebrile. Pulse ox is 9 9% on room air no signs hypoxia. He is in no distress. H EENT exam unremarkable. Neck nontender. Lungs clear to auscultation. Heart regular rhythm rate about 85 no murmur. Chest wall mild reproducible pain on the right. No ecchymosis or bruising no subcu air or crepitance. Abdomen soft nontender. Moving all 4 extremities. Calves are nontender without edema or cords. Radial pulses are equal symmetrical. Back nontender. Const Vital Signs: 01/20/22 13:25 01/20/22 13:34 01/20/22 13:59 Temperature 98.0 F Temperature Source Oral Pulse Rate 90 Respiratory Rate 16 Respiratory Effort Normal Non-Labored Blood Pressure 165/89 H Blood Pressure Mean 114 Pulse Ox 99 Oxygen Delivery Method Room Air Room Air Positive well nourished, well developed and obese; Negative for cachectic, contractures or unkempt General Appearance ED: well developed; Negative for unkempt, cachectic, contractures or pallor Nutritional Appearance: obese; Negative for cachectic HEENT Reports moist mucous membranes normocephalic and atraumatic; Negative for trauma or tenderness Eyes PERRL and EOMs intact bilaterally General Eye ED: Negative for pale conjunctiva or scleral icterus Neck no lymphadenopathy, supple and no JVD General: Negative for tenderness Chest Wall inspection of chest normal and palpation of chest normal Chest: Negative for tenderness Resp normal respiratory effort and clear to auscultation bilaterally Effort and Inspection: Negative for respiratory distress Auscultation: Negative for rales, rhonchi or wheezes Cardio regular rate, regular rhythm, S1 normal heart sound, S2 normal heart sound and no murmurs Rate: Negative for bradycardia Rhythm: Negative for abnormal rhythm Peripheral Pulses: pulses 2+ throughout GI normal to inspection, nondistended, normoactive bowel sounds, soft to palpation, non-tender, non-distended and no masses Auscultation: Negative for hyperactive bowel sounds Palpation: Negative for splenomegaly or mass Back/Spine no CVA tenderness and no thoracic nor lumbar tenderness General Back: Negative for CVA tenderness Cervical Spine: Negative for cervical spine tenderness Extremity normal to inspection General Extremety ED: Negative for edema or pulses abnormal General Extremity: Negative for edema or pulses abnormal Neuro oriented x3, CN's II-XII intact bilaterally and gait normal Sensorium / Orientation: awake, alert, oriented to person, oriented to place and oriented to time; Negative for confused, lethargic or stuporous Motor Exam: strength 5/5 throughout Psych mental status grossly normal Appearance: Negative for unkempt Attitude: No agitated Mood & Affect: Negative for depressed, anxious or tearful Skin no rashes or lesions noted General Skin Exam: Negative for jaundice or pallor Rashes: No rashes noted Trauma: Negative for abrasion or laceration MDM MDM MDM Narrative Medical decision making narrative: 26-year-old male with atypical right-sided chest pain. This is does not appear to be cardiac in etiology. I think it is less likely that is a PE or DVT but there is a family history with COVID that his dad is being treated for pulmonary emboli. I will do screening labs, chest x-ray and EKG and a D-dimer. His exam otherwise is benign. Repeat exam patient doing well at 2:40 PM. To be discharged home. Lab Data Attestation: I reviewed the patient's lab results. Lab results narrative: CBC shows a white count 1.6. H&H 15 and 44. D-dimer -0.32. Electrolytes unremarkable gap of 6 normal BUN and creatinine. Glucose 100.Chest x-ray is negative. Chest x-ray is negative. Patient refused an EKG. Labs: Laboratory Results - last 24 hr 01/20/22 01/20/22 01/20/22 13:55 13:55 13:55 WBC 11.6 H RBC 5.35 Hgb 15.0 Hct 44.7 MCV 83.6 MCH 28.0 MCHC 33.6 RDW Std Deviation 39.2 RDW Coeff of Shikha 13.1 Plt Count 218 MPV 10.1 Immature Gran % (Auto) 0.300 Neut % (Auto) 73.8 H Lymph % (Auto) 17.8 L Schley % (Auto) 6.4 Eos % (Auto) 1.4 Baso % (Auto) 0.3 Absolute Neuts (auto) 8.6 H Absolute Lymphs (auto) 2.06 Nucleated RBC % 0 D-Dimer Quant (PE/DVT) 0.32 Sodium 138 Potassium 3.9 Chloride 105 Carbon Dioxide 27.0 Anion Gap 6 BUN 10 Creatinine 1.05 Estim Creat Clear Calc 118.37 Est GFR (MDRD) Af Amer 108 Est GFR (MDRD) Non-Af 89 BUN/Creatinine Ratio 9.5 L Glucose 100 Calcium 9.2 Radiography Chest X-Ray - ED: 1 View, Read by ED Physician, Read by Radiologist, Heart, Lungs, Mediastinum, Bony Structures and No Acute Disease Diagnostic Testing: Clinical Impression(s) from Imaging Studies Chest X-Ray 01/20/22 13:44 IMPRESSION: No acute abnormality is seen. Electronically Signed: Juvencio Spaulding MD at 14:26 EDT , Chest x-ray, portable, single view interpreted myself and radiologist shows no acute abnormality. Discharge Plan Triage Chief Complaint: Chest Pain Other Complaint: Cold Sx Palpitations ED Provider: Ata Mcbride Dx/Rx/DC Orders Clinical Impression: Chest pain, Acute chest wall pain Prescriptions: No Action fluticasone propionate 50 mcg/actuation spray,suspension 2 spray intranasal DAILY Rx Instructions: administer into each nostril dicyclomine 10 mg capsule 10 mg PO .COMPLEX Label Comments: TAKE 1 CAPSULE BY MOUTHTPRIOR TO MEALSSO Rx Instructions: 10 mg orally prior to meals; Primary Care Provider: Israel Duarte Referrals: Israel Duarte MD [Primary Care Provider] - 1 Week if not improving Activity Restrictions/Additional Instructions: Your chest x-ray and labs are unremarkable. Your test for blood clot was negative. No pneumonia on the chest x-ray. Motrin and Tylenol for pain and this should progressively improve if not follow- up with your doctor. Disposition Disposition: Home, Self Care
[2022-01-20 14:09] LABS: Absolute Lymphocyte Count 2.06 X10^3/uL (0.83-4.51); Absolute Neutrophil Count 8.6 X10^3/uL (2.0-7.7); Basophil# 0.03 X10^3/uL; Basophil% 0.3 % (0-1); Eosinophil# 0.16 X10^3/uL; Eosinophils% 1.4 % (0-5); Hematocrit 44.7 % (40-54); Lymphocyte # 2.06 X10^3/ul (0.83-4.51); Lymphocyte % 17.8 % (19-41); Mean Corp Hgb Conc 33.6 g/dL (32-36); Mean Corpuscular Volume 83.6 fL (80-94); Mean Platelet Vol. 10.1 fl (6.2-12.0); Monocyte# 0.74 X10^3/uL; Monocyte% 6.4 % (0-10); NRBC Flagged by Analyzer 0 % (0-5); Neutrophil # 8.55 X10^3/uL (2.7-7.7); Neutrophil % 73.8 % (47-70); Platelet Count 218 K/mm3 (150-450); RBC Distribution Width CV 13.1 % (11.6-14.6); RBC Distribution Width SD 39.2 fl (35.1-43.9); Red Blood Count 5.35 M/mm3 (4.6-6.2); White Blood Count 11.6 K/mm3 (4.4-11.0)
[2022-01-20 14:20] LABS: D-Dimer Quantitative (DVT/PE) 0.32 FEU/ug/m (0.27-0.49)
[2022-01-20 14:21] LABS: Anion Gap 6 (5-15); BUN 10 mg/dL (7-18); BUN/Creat Ratio 9.5 RATIO (10-20); Calcium,Total 9.2 mg/dL (8.5-10.1); Chloride 105 mmol/L (98-107); Creatinine, Serum 1.05 mg/dL (0.70-1.30); EST Glomerular Filtration Rate 89 mL/min (>60); Est Glom Filt Rate - Afr Amer 108 mL/min (>60); Estimated Creatinine Clearance 118.37 ml/min; Glucose 100 mg/dL (74-106); Potassium 3.9 mmol/L (3.5-5.1); Sodium Level 138 mmol/L (136-145)
[2022-01-20 15:02] VITALS: BP 141/98; PULSE 98; RESP 12; O2SAT 95
== END 2022-01-20 15:03 | disposition home or self-care (01) ==
PROVIDERS: Emergency Provider Emergency Medicine; PCP Family Medicine; Visit Provider Emergency Medicine
DX: R07.89 Other chest pain (principal); R00.2 Palpitations; K21.9 Gastro-esophageal reflux disease without esophagitis; E66.9 Obesity, unspecified; Z87.891 Personal history of nicotine dependence; Z86.16 Personal history of COVID-19
CPT/HCPCS: 71045; 80048; 85025; 85379; 99284; A4216

== ENCOUNTER → 2022-01-23 | Outpatient (CLI) | payer OTHER, SELFPAY ==
[2022-01-23 08:57] LABS: CRP 5.75 mg/L (0.0-3.0); CRP, High Sensitivity Cardiac 6.48 mg/L
== END | disposition home or self-care (01) ==
LOC: MFPLAB 08:17 → LABSPEC 08:31
PROVIDERS: PCP Family Medicine; Referring Provider Family Medicine; Visit Provider Family Medicine
DX: R79.82 Elevated C-reactive protein (CRP) (principal)
CPT/HCPCS: 36415; 86140; 86141

== ENCOUNTER 2022-01-26 08:20 | Emergency (ER) | payer OTHER, SELFPAY ==
[2022-01-26 08:21] VITALS: BP 170/94; PULSE 94; RESP 14; TEMP 36.6; O2SAT 100; BMI 41.9
--- NOTE | 2022-01-26 09:17 | EDS_ITS ---
HPI History of Present Illness Chief Complaint: Dental Informant: patient Narrative Narrative: Worsening right lower dental pain for the past couple weeks with hot and cold sensitivities.'s been having dental issues last couple months. He seen a dentist about a month ago states had a right upper tooth extraction. Has another upcoming appointment. No fevers. No trouble swallowing. Prior similar symptoms: Yes PFSH PFSH Medical History GERD (gastroesophageal reflux disease) History of COVID-19 (07/2021) Kidney stones Multiple premature ventricular complexes Obesity Home Medications fluticasone propionate 50 mcg/actuation nasal spray,suspension 2 spray i ntranasal DAILY 12/12/21 [History Last Taken Unknown] penicillin V potassium 250 mg tablet 500 mg PO 4X/DAY #40 tabs 01/26/22 [Rx Last Taken Unknown] Allergy/AdvReac Type Severity Reaction Status Date / Time metoprolol AdvReac Other Verified 01/26/22 08:28 Family History Father CAD (coronary artery disease) Diabetes CVA (cerebral vascular accident) Hypertension Hyperlipidemia Mother Arthritis Surgical History Brain tumor Social History Smoking Status: Former smoker ROS ROS ED Constitutional Constitutional ED: Denies chills, fever(s) or sweats Eyes Eyes: Denies change in vision ENT ENT ED: Reports other Details: Right lower dental pain ; Denies dysphagia or sore throat Cardiovascular Cardiovascular: Denies chest pain, leg edema, palpitations or racing heartbeat Respiratory/Chest Respiratory/Chest: Denies cough, dyspnea or dyspnea on exertion Gastrointestinal Gastrointestinal: Denies abdominal pain, diarrhea, nausea or vomiting Genitourinary Genitourinary ED: Denies dysuria, hematuria or urinary frequency Musculoskeletal Musculoskeletal: Denies back pain, extremity pain or neck pain Integumentary Denies rash or wounds Neurologic Neurologic: Denies headache(s), paresthesias or weakness EXAM Physical Exam Const Vital Signs: 01/26/22 08:21 01/26/22 09:31 Temperature 98 F Temperature Source Temporal Pulse Rate 94 76 Respiratory Rate 14 15 Blood Pressure 170/94 H 139/84 H Blood Pressure Mean 119 Pulse Ox 100 97 Oxygen Delivery Method Room Air Positive well nourished and well developed General Appearance ED: well developed and NAD HEENT Reports moist mucous membranes HEENT Narrative: Tender to tooth percussion of #30 and 31 with noted previous dental fillings. No focal gum abscess or fluctuance no sublingual edema. He did have wisdom tooth #30 to visualize not noting any impaction. Airway patent. normocephalic and atraumatic Eyes PERRL, EOMs intact bilaterally and conjunctivae normal General Eye ED: Yes normal appearance of both eyes Neck no lymphadenopathy and supple General: Negative for tenderness Chest Wall Chest: Negative for tenderness Resp normal respiratory effort and normal air movement Effort and Inspection: symmetric chest movement; Negative for respiratory distress Cardio regular rate, regular rhythm and no murmurs Peripheral Pulses: pulses 2+ throughout GI normal to inspection, nondistended, normoactive bowel sounds and non-tender Palpation: Negative for guarding or rebound tenderness present Back/Spine no CVA tenderness and no thoracic nor lumbar tenderness Extremity normal to inspection General Extremety ED: Negative for edema or tenderness General Extremity: Negative for edema Neuro oriented x3 and no sensory deficits noted Sensorium / Orientation: awake and alert Skin no rashes or lesions noted and no wounds MDM MDM MDM Narrative Medical decision making narrative: Patient nontoxic. Dental sensitivities with pain. He started on penicillin. He will use Tylenol Motrin as needed. Discussed calling his dentist and follow- up with him for definitive treatment as an outpatient. All questions were answered. Discharge Plan Triage Chief Complaint: Dental ED Provider: Jose Angel Herrera Dx/Rx/DC Orders Clinical Impression: Dentalgia, Dental caries, Tooth sensitivity to cold Instructions: ED Dental Pain Prescriptions: New penicillin V potassium 250 MG tablet 500 mg PO 4X/DAY Qty: 40 0RF No Action fluticasone propionate 50 mcg/actuation spray,suspension 2 spray intranasal DAILY Rx Instructions: administer into each nostril Primary Care Provider: Israel Duarte Referrals: Israel Duarte MD [Primary Care Provider] - Activity Restrictions/Additional Instructions: Keep your follow-up with your dentist for definitive treatment. Take antibiotic as prescribed. Disposition Disposition: Home, Self Care Discharge Date/Time: 01/26/22 09:32
[2022-01-26 09:31] VITALS: BP 139/84; PULSE 76; RESP 15; O2SAT 97
== END 2022-01-26 09:32 | disposition home or self-care (01) ==
PROVIDERS: Emergency Provider Emergency Medicine; PCP Family Medicine; Visit Provider Emergency Medicine
DX: K08.89 Other specified disorders of teeth and supporting structures (principal); K02.9 Dental caries, unspecified; K21.9 Gastro-esophageal reflux disease without esophagitis; Z86.16 Personal history of COVID-19; Z87.891 Personal history of nicotine dependence
CPT/HCPCS: 99282

== ENCOUNTER → 2022-01-27 | Outpatient (CLI) | payer OTHER, SELFPAY ==
--- NOTE | 2022-01-27 12:22 | CT_ITS ---
INDICATION: CHEST PAIN EXAMINATION: CT CHEST WITH CONTRAST - CT Chest W/ Contrast Injection TECHNIQUE: Helically acquired images were obtained of the chest following IV contrast. A radiation dose optimization technique was used for this scan. IV Contrast dosage and agent: 100 mL of ISOVUE-300. COMPARISON: Chest x-ray obtained on 11/03/2021.. FINDINGS: LUNGS, PLEURA AND LARGE AIRWAYS: No masses, consolidation, or edema. No pleural effusion or thickening. No pneumothorax. THYROID: No thyroid lesions. HEART AND PERICARDIUM: Heart size is normal. No pericardial effusion. VESSELS: Thoracic aorta is not dilated. No aortic dissection. No obvious central pulmonary embolism although this study was not performed with the pulmonary embolism protocol. MEDIASTINUM AND JASON: No mediastinal or hilar adenopathy. Esophagus is unremarkable. No hiatal hernia. UPPER ABDOMEN: No acute pathology. BONES: No suspicious lytic or blastic abnormality. Degenerative bone changes seen. CT/Chest WITH Contrast IMPRESSION: Negative contrast enhanced CT of the chest. Electronically Signed: Rodri Arguelles MD at 13:40 EDT ,
== END | disposition home or self-care (01) ==
LOC: CT 12:21
PROVIDERS: PCP Family Medicine; Referring Provider Family Medicine; Visit Provider Family Medicine
DX: R07.9 Chest pain, unspecified (principal)
CPT/HCPCS: 71260; Q9967

== ENCOUNTER → 2022-03-07 | Outpatient (CLI) | payer OTHER, SELFPAY ==
[2022-03-07 15:16] LABS: Absolute Neutrophil Count 6.9 X10^3/uL (2.0-7.7); Basophil# 0.02 X10^3/uL; Basophil% 0.2 % (0-1); Eosinophil# 0.29 X10^3/uL; Hematocrit 47.1 % (40-54); Hemoglobin 15.7 g/dL (13.0-16.5); Lymphocyte % 18.6 % (19-41); Mean Corp Hgb Conc 33.3 g/dL (32-36); Mean Platelet Vol. 10.7 fl (6.2-12.0); Monocyte# 0.69 X10^3/uL; Monocyte% 7.1 % (0-10); NRBC Flagged by Analyzer 0 % (0-5); Neutrophil # 6.85 X10^3/uL (2.7-7.7); Neutrophil % 70.8 % (47-70); Platelet Count 245 K/mm3 (150-450); RBC Distribution Width SD 39.5 fl (35.1-43.9); Red Blood Count 5.61 M/mm3 (4.6-6.2); White Blood Count 9.7 K/mm3 (4.4-11.0)
== END | disposition home or self-care (01) ==
LOC: MTLAB 12:35
PROVIDERS: PCP Family Medicine; Referring Provider Family Medicine; Visit Provider Family Medicine
DX: R79.82 Elevated C-reactive protein (CRP) (principal); D72.829 Elevated white blood cell count, unspecified
CPT/HCPCS: 36415; 85025; 86140

== ENCOUNTER → 2022-03-10 | Outpatient (CLI) | payer OTHER, SELFPAY ==
[2022-03-10 10:16] LABS: CRP 8.75 mg/L (0.0-3.0); Cholesterol 139 mg/dL (200); High Density Lipoprotein 38 mg/dL; Triglycerides 132 mg/dL; Very Low Density Lipoprotein 26 mg/dL (5-40)
[2022-03-10 10:24] LABS: Erythrocyte Sedimentation Rate 10 mm/hr (0-20)
== END | disposition home or self-care (01) ==
LOC: MTLAB 08:16
PROVIDERS: PCP Family Medicine; Referring Provider Family Medicine; Visit Provider Family Medicine
DX: R79.82 Elevated C-reactive protein (CRP) (principal); E78.5 Hyperlipidemia, unspecified; R73.01 Impaired fasting glucose
CPT/HCPCS: 36415; 80061; 83036; 85652; 86140

== ENCOUNTER → 2022-03-22 | Outpatient (CLI) | payer OTHER, SELFPAY ==
[2022-03-22 15:23] LABS: Absolute Lymphocyte Count 2.56 X10^3/uL (0.83-4.51); Absolute Neutrophil Count 6.9 X10^3/uL (2.0-7.7); Basophil# 0.02 X10^3/uL; Basophil% 0.2 % (0-1); Eosinophil# 0.15 X10^3/uL; Eosinophils% 1.4 % (0-5); Hematocrit 46.6 % (40-54); Hemoglobin 15.8 g/dL (13.0-16.5); Lymphocyte # 2.56 X10^3/ul (0.83-4.51); Lymphocyte % 24.7 % (19-41); Mean Corp Hgb Conc 33.9 g/dL (32-36); Mean Corpuscular Hgb 28.4 pg (27.0-32.0); Mean Corpuscular Volume 83.7 fL (80-94); Mean Platelet Vol. 10.8 fl (6.2-12.0); Monocyte# 0.76 X10^3/uL; Monocyte% 7.3 % (0-10); NRBC Flagged by Analyzer 0 % (0-5); Neutrophil # 6.86 X10^3/uL (2.7-7.7); Neutrophil % 66.1 % (47-70); Platelet Count 260 K/mm3 (150-450); RBC Distribution Width CV 12.8 % (11.6-14.6); RBC Distribution Width SD 38.5 fl (35.1-43.9); Red Blood Count 5.57 M/mm3 (4.6-6.2); White Blood Count 10.4 K/mm3 (4.4-11.0)
[2022-03-22 15:41] LABS: CRP 9.42 mg/L (0.0-3.0)
[2022-03-29 16:30] LABS: Wheat 0.25 kU/L (Class 0/I)
== END | disposition home or self-care (01) ==
PROVIDERS: PCP Family Medicine; Referring Provider Family Medicine; Visit Provider Family Medicine
DX: R23.3 Spontaneous ecchymoses (principal); Z91.018 Allergy to other foods
CPT/HCPCS: 36415; 85025; 86003; 86140

== ENCOUNTER → 2022-03-28 | Outpatient (CLI) | payer OTHER, SELFPAY ==
[2022-03-28 19:17] LABS: Amylase 42 U/L (25-115); CRP < 2.90 mg/L (0.0-3.0); Lipase 88 U/L (73-393); Rheumatoid Factor < 10.0 IU/mL (<15)
[2022-03-28 20:35] LABS: Vitamin B12 697 pg/mL (211-911); Vitamin D,25 Hydroxy 30.4 ng/mL
[2022-03-31 15:32] LABS: ANTINUCLEAR ANTIBODIES DIRECT Negative (Negative)
[2022-04-02 15:30] LABS: CCP IgG Antibodies 5 units (0-19); Vitamin A, Retinol 54.2 ug/dL (18.9-57.3)
== END | disposition home or self-care (01) ==
LOC: BFHLAB 14:19
PROVIDERS: PCP Family Medicine; Visit Provider Family Medicine
DX: R10.9 Unspecified abdominal pain (principal); R79.82 Elevated C-reactive protein (CRP); M25.50 Pain in unspecified joint; R07.9 Chest pain, unspecified; E56.9 Vitamin deficiency, unspecified
CPT/HCPCS: 36415; 82150; 82306; 82607; 82746; 83690; 84590; 86038; 86140; 86200; 86225; 86235; 86431

== ENCOUNTER → 2022-03-31 | Outpatient (CLI) | payer OTHER, SELFPAY ==
[2022-04-05 15:34] LABS: Fats, Neutral Normal (.); Fats, Total Increased (.)
== END | disposition home or self-care (01) ==
LOC: LABSPEC 11:37
PROVIDERS: PCP Family Medicine; Visit Provider Family Medicine
DX: K90.9 Intestinal malabsorption, unspecified (principal)
CPT/HCPCS: 82705

== ENCOUNTER 2022-04-24 03:57 | Emergency (ER) | payer OTHER, SELFPAY ==
[2022-04-24 03:57] VITALS: BP 129/90; PULSE 124; RESP 18; TEMP 37.4; O2SAT 96; BMI 41.0
--- NOTE | 2022-04-24 04:08 | EX.ED.DYSGE1 ---
HPI History of Present Illness Chief Complaint: General Illness Detail of Chief Complaint: Fever, sore throat, body aches Informant: patient Narrative Narrative: Patient presents with complaints of not feeling well since waking up this morning. Patient checked his temperature at home and it was 102. Complains of a sore throat and he noticed redness to his throat and some bumps. Patient denies cough. He does complain of body aches. He complains of a headache. Denies sick contacts. Denies urinary symptoms. PFSH [facility] Medical History (Updated 04/24/22 @ 05:[address] Ten Esposito, ) GERD (gastroesophageal reflux disease) History of COVID-19 (07/2021) Kidney stones Multiple premature ventricular complexes Obesity Home Medications fluticasone propionate 50 mcg/actuation nasal spray,suspension 2 spray intranasal DAILY PRN Congestion 03/30/22 [History Last Taken Unknown] diltiazem HCl 120 mg capsule,extended release 24 hr 120 mg PO QHS #30 caps 04/03/22 [Rx Last Taken Unknown] esomeprazole magnesium 40 mg capsule,delayed release (Nexium) 40 mg PO DAILY 04/24/22 [History Last Taken Unknown] Allergy/AdvReac Type Severity Reaction Status Date / Time metoprolol AdvReac Other Verified 03/30/22 11:12 Family History Father CAD (coronary artery disease) Diabetes CVA (cerebral vascular accident) Hypertension Hyperlipidemia Mother Arthritis Surgical History Brain tumor Social History Smoking Status: Former smoker how long ago did patient quit smokin year ago alcohol intake: never substance use type: does not use caffeine: Yes Type: tea Number of servings: 2 ROS ROS ED Review of Systems ROS Unobtainable: other Constitutional Constitutional ED: Reports fever(s) and lethargy; Denies chills, sweats or weight loss Eyes Eyes: Denies blurry vision, change in vision or diplopia ENT ENT ED: Reports sore throat; Denies rhinorrhea Cardiovascular Cardiovascular: Reports chest pain and racing heartbeat; Denies orthopnea Respiratory/Chest Respiratory/Chest: Reports dyspnea and dyspnea on exertion; Denies cough, orthopnea or sputum Gastrointestinal Gastrointestinal: Denies abdominal pain, diarrhea, nausea or vomiting Genitourinary Genitourinary ED: Denies dysuria, hematuria or urinary frequency Musculoskeletal Musculoskeletal: Reports myalgias; Denies arthralgias, back pain or neck pain Integumentary Denies abscess, Abrasions or rash Neurologic Neurologic: Reports headache(s); Denies weakness Psychiatric Psychiatric: Denies anxiety, depression or suicidal thoughts Endocrine Endocrinology: Denies polydipsia, polyphagia or polyuria Hematologic/Lymphatic Hematologic/Lymphatic: Denies easy bleeding, easy bruising or lymphadenopathy Allergic/Immunologic Allergic/Immunologic ED: Denies mouth swelling, tongue swelling or urticaria EXAM Physical Exam Const Vital Signs: 04/24/22 03:57 Temperature 99.3 F H Temperature Source Temporal Pulse Rate 124 H Respiratory Rate 18 Blood Pressure 129/90 H Blood Pressure Mean 103 Pulse Ox 96 Oxygen Delivery Method Room Air Positive well nourished and well developed General Appearance ED: well developed and NAD HEENT Reports TM's clear and moist mucous membranes HEENT Narrative: Diffuse pharyngeal erythema. No exudates noted. Uvula midline. No trismus. normocephalic and atraumatic; Negative for trauma or tenderness Tympanic Membrane ED: Yes TM's clear Eyes PERRL and EOMs intact bilaterally General Eye ED: Negative for pale conjunctiva or scleral icterus Neck no lymphadenopathy, supple and no JVD General: Negative for tenderness Chest Wall inspection of chest normal and palpation of chest normal Chest: Negative for tenderness Resp normal respiratory effort and clear to auscultation bilaterally Effort and Inspection: Negative for respiratory distress or pain with movement Auscultation: Negative for rhonchi, wheezes or diminished lung sounds Cardio regular rate, regular rhythm, S1 normal heart sound, S2 normal heart sound and no murmurs Peripheral Pulses: pulses 2+ throughout GI normal to inspection, nondistended, normoactive bowel sounds, soft to palpation, non-tender, non-distended and no masses Back/Spine no CVA tenderness and no thoracic nor lumbar tenderness Extremity normal to inspection General Extremety ED: Negative for edema General Extremity: Negative for edema Neuro oriented x3, CN's II-XII intact bilaterally, no sensory deficits noted and gait normal Sensorium / Orientation: awake, alert, oriented to person, oriented to place and oriented to time Motor Exam: strength 5/5 throughout and strength abnormal Psych mental status grossly normal Skin no rashes or lesions noted and no wounds MDM MDM MDM Narrative Medical decision making narrative: Patient had a rapid strep screen that was negative as well as rapid COVID and rapid flu and all were negative. This point I suspect a viral URI. Patient advised to use ibuprofen or Tylenol for discomfort. Patient to follow-up with primary care physician in 3 to 5 days. He is advised to repeat a COVID home test in 2 days. Lab Data Attestation: I reviewed the patient's lab results. Discharge Plan Triage Chief Complaint: General Illness ED Provider: Ten Esposito Dx/Rx/DC Orders Clinical Impression: Viral URI Instructions: ED URI, Viral, No Abx (Adult) Prescriptions: No Action fluticasone propionate 50 mcg/actuation spray,suspension 2 spray intranasal DAILY PRN (Reason: Congestion) Rx Instructions: administer into each nostril esomeprazole magnesium [Nexium] 40 mg Capsule,Delayed Release(Dr/Ec) 40 mg PO DAILY diltiazem HCl 120 mg capsule,extended release 24hr 120 mg PO QHS Qty: 30 11RF Primary Care Provider: Hector Yanez Referrals: Hector Yanez DO [Primary Care Provider] - 3-5 Days Disposition Disposition: Home, Self Care
[2022-04-24 05:07] VITALS: BP 129/90; PULSE 120; RESP 18; O2SAT 96
== END 2022-04-24 05:08 | disposition home or self-care (01) ==
PROVIDERS: Emergency Provider Emergency Medicine; PCP Family Medicine; Visit Provider Emergency Medicine
DX: J06.9 Acute upper respiratory infection, unspecified (principal); Z87.891 Personal history of nicotine dependence; Z86.16 Personal history of COVID-19
CPT/HCPCS: 87428; 87880; 99282

== ENCOUNTER → 2022-04-27 | Outpatient (CLI) | payer OTHER, SELFPAY ==
[2022-04-29 14:15] LABS: H.Pylori Breath Test Negative (Negative)
== END | disposition home or self-care (01) ==
LOC: LAB 08:22
PROVIDERS: PCP Family Medicine; Visit Provider Family Medicine
DX: R10.13 Epigastric pain (principal)
CPT/HCPCS: 83013

== ENCOUNTER → 2022-06-23 | Outpatient (CLI) | payer OTHER, SELFPAY ==
--- NOTE | 2022-06-23 12:51 | NM_ITS ---
CLINICAL: 26-year-old male with history of chest discomfort and early satiety. SEMI-SOLID PHASE 99m Tc SULFUR COLLOID GASTRIC EMPTYING STUDY COMPARISON: None available FINDINGS: The patient was administered 1.0 mCi of 99m Tc sulfur colloid mixed with oatmeal and consumed per os. Image acquisitions in the anterior-posterior projections were obtained for 60 minutes. There is prompt visualization of the stomach. There is no gastroesophageal reflux identified. The T ? raw data emptying was calculated to be approximately 56 minutes, (Normal: 12-56 minutes). NM/Gastric Emptying Study IMPRESSION: 1. NORMAL 99m Tc sulfur colloid semi-solid phase (oatmeal) gastric emptying imaging examination. A. There is upper limits of normal semi-solid phase gastric emptying compared to normal controls. (Devan et al, J Nucl Med Tech 38: 186, 2010). Electronically Signed: Edwar Chandler, at 10:59 EST ,
== END | disposition home or self-care (01) ==
PROVIDERS: PCP Family Medicine; Referring Provider Nurse Practitioner Adult Health; Visit Provider Nurse Practitioner Adult Health
DX: R68.81 Early satiety (principal); K21.9 Gastro-esophageal reflux disease without esophagitis
CPT/HCPCS: 78264; A9541

== ENCOUNTER 2022-07-12 09:27 | Day surgery (SDC) | payer OTHER, SELFPAY ==
--- NOTE | 2022-07-12 | ESO_PTH ---
PATIENT: LUDY YATES LOC: EN U#:[id number] AGE/SX: 26/M ROOM: RE07/12/[address]: Dr. Jelani Chopra DO : 1995 BED: DIS: 07/12/2022 SPEC #: [id number] RECD: 07/12/22 13:09 STATUS: JERARDO ELIAZAR #: [id number] LIAN: 07/12/22 00:[address]: Jelani Chopra DEPT: SURGICAL PATHOLOGY RECD BY: Keven Deluca ENTERED: 07/12/22 13:09 SP TYPE: LUCILA RAMIREZ DR: Dr. Hector Yanez DO Tissues: Esophagus, NOS Procedures: Special Stain Group II Surgery Specimen Level IV Alcian Blue/PAS (control) HEADER OPERATION: EGD ([facility] [place] PRE-OP DIAGNOSIS: Atypical chest pain, early satiety, intermittent palpitations TISSUE SUBMITTED: Distal esophagus biopsy MICROSCOPIC DIAGNOSIS Distal esophagus, biopsy: Gastroesophageal junctional mucosa with chronic inflammation. 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 No evidence of dysplasia. See comment. AM:mervin 07/13/2022 COMMENT Immunohistochemistry ([id number]) for P53 and Ki-67 will be performed and results will be reported separately. Alcian blue/PAS stain with matched control supports the above diagnosis. MICROSCOPIC DESCRIPTION Slides are reviewed. GROSS DESCRIPTION Received in fixative is one container labeled with the patient's name and designated distal esophagus biopsy. The specimen consists of two irregular fragments of light holly soft tissue that in aggregate measure 0.6 x 0.3 x 0.1 cm. The specimen is totally submitted in one cassette. / AM:mervin 07/12/2022 TC:3 CPT: 34380, 68855
--- NOTE | 2022-07-12 | IMM_PTH ---
PATIENT: LUDY YATES LOC: EN U#:[id number] AGE/SX: 26/M ROOM: RE07/12/[address]: Dr. Jelani Chopra DO : 1995 BED: DIS: 07/12/2022 SPEC #: [id number] RECD: 07/13/22 13:54 STATUS: JERARDO REJunaid #: [id number] LIAN: 07/12/22 00:[address]: Jelani Chopra DEPT: IMMUNOHISTOCHEMISTRY RECD BY: Joy Crespo ENTERED: 07/13/22 13:55 SP TYPE: IMMUNO OTHR DR: Dr. Hector Yanez DO Tissues: Esophagus, NOS Procedures: P53 (initial) KI-67 (add) PHYSICIAN & INSTITUTION [place] [id number] SPECIMEN INFORMATION: Tissue Source: Distal esophagus Clinical Info: Atypical chest pain, early satiety, intermittent palpitations Specimen Number: [id number] CPT code: 37679, 73913 METHODOLOGY: Deparaffinized sections of prefer/formalin-fixed tissue or PAP/DQ stained slides are incubated with monoclonal/polyclonal antibodies/oligonucleotide probes. Localization is made via biotin free immunoperoxidase method. Appropriate controls are performed and reacted as expected. Results on target cell population are indicated in the following table: RESULTS: ANTIBODY / CLONE RESULT P53 (DO-7) negative Ki-67 (30-9) positive, low These tests were developed and their performance characteristics determined by [facility]. They may not have been cleared or approved by the U.S. Food and Drug Administration. The FDA has determined that such clearance or approval is not necessary. The above immunohistochemical/dualISH markers are ordered and reviewed by the Pathologist. INTERPRETATION: Distal esophagus, biopsy: No evidence of dysplasia. AM:mervin 07/14/2022
[2022-07-12 09:56] VITALS: BP 140/81; PULSE 77; RESP 16; TEMP 36.8; O2SAT 100; BMI 41.8
--- NOTE | 2022-07-12 09:57 | HP.PCM_ITS ---
History and Physical Date of Admission: 07/12/22 26 M who presents to the office today to establish with gastroenterology for atypical chest pain.? He has been thoroughly evaluated by cardiology, no cardiac etiology for the chest pain. He is currently on diltiazem for palpitations; reports his palpitations stopped after about 10 days.? His symptoms began with burning throat in June 2021, relieved with 2 wks of OTC omeprazole, but returned as soon as he stopped the med. Then in October 2021, in addition to the throat burning, he developed CP, palpitations, RUQ abd pain, diarrhea. Was put on famotidine 40 mg daily, helped with the burning throat but not the other symptoms. Still had daily diarrhea on dicyclomine. 10/2021 labs revealed elevated WBC, negative celiac, allergies to wheat and peanuts. 10/2021 RUQ US showed fatty liver, mild hepatomegaly, mildly decreased echogenicity of pancreas (normal amylase and lipase). The CP radiated through to the infrascapular region, now resolved. Sometimes felt like spasms in lower chest and upper abdomen. He then took OTC esomeprazole 20 mg, took it BID--it was more effective than fam otidine; increased to 40 mg BID which resolved the CP; but too expensive so he is now on pantoprazole 40 mg bid. Pantoprazole is also effective at treating the throat burning and chest pain, although occasionall the chest feels hot to the touch. Diarrhea resolved in Mar at about the same time he started current dose of PPI. Seems like stool is full of gas, but it is formed and having regular BMs . He reports he is passing lots of gas. Chocolate causes chest fire where chest feels hot to the touch, as well as nausea. He burped up some food yesterday that he had eaten 6 hours earlier. Hot green tea with honey helps. Can have nausea 2 hours after eating, depends on what he eats. He has been gluten- free since at least 11/2021. He has early satiety. When he ate more than usual at Thanksgiving he noted heart rate 118 and thumping. He had bloodshot eyes which resolved. Can have blurry vision when chest feels hot. He had COVID in 01/2021 and 07/202111/17/21 US/Gallbladder IMPRESSION: Hepatic steatosis with mildly enlarged liver.? No focal mass. Limited visualization of pancreas suggest mildly decreased echogenicity. This may be within normal limits but could be seen with pancreatitis correlate with serum amylase and lipase level. Otherwise normal exam. 12/12/21 Esophagram: normal 10/2021 ESR 25, food allergens: wheat, peanut 12/2021 ESR normalized, CRP 16 02/2022 wheat allergy: IgG wheat 29 (0-1.9), WBC normalized 03/2022 [place] neg, RF neg, CCP normal, normal stool neutral fats, increased stool total fats, CRP normalized <2.9, normal amylase, normal lipase, normal Vit A, normal Vit B12, Vit D 30, folate 80 H 04/2022 Negative H pylori breath test FH: father GERD ROS Const Constitutional: Positive for fatigue and headache(s); No fever(s), frequent falls or weight change ENT ENT: Positive for headache(s); No difficulty swallowing Cardio Cardiology: No leg pain with exertion Gastro GI: Positive for abdominal pain, bloating, change in bowel habits, diarrhea, heartburn and nausea/dyspepsia; No constipation, difficulty swallowing, Vomiting blood/hematemesis, Blood in stool or vomiting Musc Musculoskeletal: Positive for back pain and joint swelling; No abnormal gait, joint pain, muscle cramps, muscle weakness, numbness, stiffness, tingling, Arthritis, sciatica, leg pain at night or leg pain with exertion Skin Skin: No dry skin, lesions, itchy eyes or rash Neuro Neurology: Positive for headache(s); No abnormal gait, dizziness, frequent falls, numbness, tingling, tremor(s), Increased tone in limbs, paralysis or seizures Psych Psychiatric: No anxiety, No depression, No paranoia, No Behavioral Problems, No Compulsive Behavior, No hyperactivity, No inattentiveness, No obsessions/compulsions, Positive for Temper Tantrums and No suicidal ideation Endo Endocrine: Positive for fatigue; No weight change Aller/Imm Allergy/Immunologic: No itchy eyes Aravind/Lymp Hematologic/Lymphatic: No easy bleeding or easy bruising Exam Const General: cooperative, comfortable and no acute distress Nutritional Appearance: obese Orientation: alert, awake and oriented x3 HENMT Head: normal to inspection Eyes Sclera: sclerae normal Chest Chest palpation & inspection: normal inspection of the chest and normal palpation of entire chest wall Resp Effort & Inspection: normal respiratory effort GI Inspection: normal to inspection Palpation: soft, no hepatosplenomegaly, no masses and nontender General: bladder normal to palpation Skin General: no rashes or lesions noted Neuro Gait: normal gait Psych Mood: euthymic mood Quality Reporting Tobacco Screening (CMS 138) Smoking Status: Former smoker Assessment and Plan Assessment and Plan (1) Atypical chest pain: ?Status:?Acute ?Plan: 26 yr old male with atypical chest pain and burning in throat which are controlled with PPI therapy; palpitations which are controlled w/ diltiazem. RUQ pain and diarrhea have resolved. Excess gas persists. He also has early satiety. Consider gastroparesis secondary to COVID. Increased total fecal fats can indicate small bowel disorder. His testing is negative for celiac. He has followed a non-gluten diet x 6 mos since receiving dx of wheat allergy. DDx includes esophageal spasms (which can sometimes be relieved with diltiazem), GERD, PUD, hiatal hernia, gastritis, duodenitis. We reviewed his workup so far in detail. Will get gastric emptying study. Will schedule him for EGD, w/ f/u in office 2 wks later. Consider esophageal manometry. Continue PPI. Can discuss fatty liver at another visit. (2) Early satiety: ?Status:?Acute ?Plan: see above (3) Intermittent palpitations: ?Status:?Acute ?Plan: see above ? ? ? Orders: Orders Gastric Emptying Study Today K21.9 - Gastro-esophageal reflux disease without esophagitis, R68.81 - Early satiety ? I have examined the patient and the H&P has been reviewed. There are no clinical changes since date of exam.
[2022-07-12] MEDS: Lactated Ringers 1,000 ML 15 ML IV (10:04)
[2022-07-12 10:50] VITALS: BP 124/70; BP 140/81; PULSE 79; RESP 16; TEMP 36.9; O2SAT 97
--- NOTE | 2022-07-12 10:50 | OP.EGD_ITS ---
Patient Name: Yadiel Shafer Procedure Date: 07/12/2022 10:27 AM Date of : 1995 Age: 26 Procedure: Upper GI endoscopy Indications: Heartburn Providers: Jelani Chopra DO Medicines: Monitored Anesthesia Care Patient Profile: This is a 26 year old male. Refer to note in patient chart for documentation of history and physical. Patient has symptoms of chronic chest pain, chronic heartburn and chronic nausea. Complications: No immediate complications. Procedure: Pre-Anesthesia Assessment: - Prior to the procedure, a History and Physical was performed, and patient medications and allergies were reviewed. The risks and benefits of the procedure and the sedation options and risks were discussed with the patient. All questions were answered and informed consent was obtained. Patient identification and proposed procedure were verified by the physician in the pre-procedure area. Mental Status Examination: alert and oriented. Airway Examination: normal oropharyngeal airway and neck mobility. Respiratory Examination: clear to auscultation. CV Examination: normal. Prophylactic Antibiotics: The patient does not require prophylactic antibiotics. Prior Anticoagulants: The patient has taken no previous anticoagulant or antiplatelet agents. ASA Grade Assessment: II - A patient with mild systemic disease. After reviewing the risks and benefits, the patient was deemed in satisfactory condition to undergo the procedure. The anesthesia plan was to use monitored anesthesia care (MAC). Immediately prior to administration of medications, the patient was re-assessed for adequacy to receive sedatives. The heart rate, respiratory rate, oxygen saturations, blood pressure, adequacy of pulmonary ventilation, and response to care were monitored throughout the procedure. The physical status of the patient was re-assessed after the procedure. After obtaining informed consent, the endoscope was passed under direct vision. Throughout the procedure, the patient's blood pressure, pulse, and oxygen saturations were monitored continuously. The gastroscope was introduced through the mouth, and advanced to the second part of duodenum. The upper GI endoscopy was accomplished without difficulty. The patient tolerated the procedure well. Scope In: 10:38:57 AM Scope Out: 10:43:37 AM Total Procedure Duration Time 0 hours 4 minutes 40 seconds Findings: Abnormal motility was noted in the middle third of the esophagus. The cricopharyngeus was abnormal. There is spasticity of the esophageal body. The distal esophagus/lower esophageal sphincter is spastic, but gives up passage to the endoscope. Tertiary peristaltic waves are noted. The Z-line was irregular and was found 38 cm from the incisors. Biopsies were taken with a cold forceps for histology. Verification of patient identification for the specimen was done. Estimated blood loss was minimal. The entire examined stomach was normal. No other significant abnormalities were identified in a careful examination of the stomach. The second portion of the duodenum was normal. Impression: - Abnormal esophageal motility, suspicious for esophageal spasm. - Z-line irregular, 38 cm from the incisors. Biopsied. - Normal stomach. - Normal second portion of the duodenum. Recommendation: - Discharge patient to home. - Resume previous diet. - Continue present medications. - Await pathology results. Procedure Code(s): --- Professional --- 12597, Esophagogastroduodenoscopy, flexible, transoral; with biopsy, single or multiple CPT copyright 2017 [employer]. All rights reserved. The codes documented in this report are preliminary and upon client care specialist review may be revised to meet current compliance requirements. Jelani Chopra DO 07/12/2022 10:50:47 AM This report has been signed electronically. Number of Addenda: 0 Note Initiated On: 07/12/2022 10:27 AM
--- NOTE | 2022-07-12 10:52 | OP.CCLET_ITS ---
07/12/2022 Hector Yanez [address] [place] [address] Re : Upper GI endoscopy procedure for Yadiel Soni Dear Dr. Yanez This procedure was performed on Tuesday, July 12, 2022. My impressions and recommendations are as follows: Impressions : - Abnormal esophageal motility, suspicious for esophageal spasm. - Z-line irregular, 38 cm from the incisors. Biopsied. - Normal stomach. - Normal second portion of the duodenum. Recommendations : - Discharge patient to home. - Resume previous diet. - Continue present medications. - Await pathology results. My findings are described in the full procedure note, which is enclosed. If I can be of further assistance, please feel free to contact me at . Sincerely, Jelani Chopra, 07/12/2022 10:50:47 AM This report has been signed electronically.
[2022-07-12 10:55] VITALS: BP 126/70; BP 140/81; PULSE 87; RESP 16; O2SAT 97
[2022-07-12 11:00] VITALS: BP 116/68; BP 140/81; PULSE 66; RESP 16; O2SAT 97
[2022-07-12 11:07] VITALS: BP 112/68; BP 140/81; PULSE 63; RESP 16; TEMP 36.8; O2SAT 99
== END 2022-07-12 11:29 | disposition home or self-care (01) ==
LOC: EN 09:31 → AC 09:32
PROVIDERS: PCP Family Medicine; Referring Provider Family Medicine; Visit Provider Internal Medicine Gastroenterology
PROC: 0DJ08ZZ Inspection of Upper Intestinal Tract, Via Natural or Artificial Opening Endoscopic (ICD-10-PCS; CPT 43235; principal; 2022-07-12 10:55)
DX: K22.4 Dyskinesia of esophagus (principal); K22.70 Barrett's esophagus without dysplasia; R00.2 Palpitations; K21.9 Gastro-esophageal reflux disease without esophagitis; R12 Heartburn; R14.0 Abdominal distension (gaseous); R68.81 Early satiety; Z79.899 Other long term (current) drug therapy; Z87.891 Personal history of nicotine dependence
CPT/HCPCS: 43239; 88305; 88313; 88341; 88342; J7120; J2405

== ENCOUNTER → 2022-09-06 | Outpatient (CLI) | payer OTHER, SELFPAY ==
[2022-09-06 10:09] LABS: Erythrocyte Sedimentation Rate 6 mm/hr (0-20)
[2022-09-06 10:11] LABS: Absolute Lymphocyte Count 1.63 X10^3/uL (0.83-4.51); Absolute Neutrophil Count 6.3 X10^3/uL (2.0-7.7); Basophil# 0.02 X10^3/uL; Basophil% 0.2 % (0-1); Eosinophil# 0.11 X10^3/uL; Eosinophils% 1.3 % (0-5); Hematocrit 48.2 % (40-54); Hemoglobin 16.1 g/dL (13.0-16.5); Lymphocyte # 1.63 X10^3/ul (0.83-4.51); Mean Corp Hgb Conc 33.4 g/dL (32-36); Mean Corpuscular Hgb 28.1 pg (27.0-32.0); Mean Corpuscular Volume 84.1 fL (80-94); Mean Platelet Vol. 10.7 fl (6.2-12.0); Monocyte# 0.49 X10^3/uL; Monocyte% 5.7 % (0-10); NRBC Flagged by Analyzer 0 % (0-5); Neutrophil # 6.28 X10^3/uL (2.7-7.7); Neutrophil % 73.4 % (47-70); Platelet Count 219 K/mm3 (150-450); RBC Distribution Width CV 13.2 % (11.6-14.6); RBC Distribution Width SD 40.7 fl (35.1-43.9); Red Blood Count 5.73 M/mm3 (4.6-6.2); White Blood Count 8.6 K/mm3 (4.4-11.0)
[2022-09-06 10:41] LABS: ALB/GLOB Ratio 0.9 RATIO (0.9-2.4); AST(SGOT) 16 U/L (15-37); Alanine Aminotransfer ALT/SGPT 27 U/L (16-61); Albumin, Serum 3.9 g/dL (3.2-5.0); Alkaline Phosphatase 73 U/L (45-117); Anion Gap 7 (5-15); BUN 16 mg/dL (7-18); BUN/Creat Ratio 15.5 RATIO (10-20); CRP 6.95 mg/L (0.0-3.0); Calcium,Total 9.4 mg/dL (8.5-10.1); Chloride 101 mmol/L (98-107); Creatinine, Serum 1.03 mg/dL (0.70-1.30); EST Glomerular Filtration Rate 91 mL/min (>60); Est Glom Filt Rate - Afr Amer 110 mL/min (>60); Globulin 4.3 g/dL (2.2-4.2); Glucose 97 mg/dL (74-106); Potassium 3.8 mmol/L (3.5-5.1); Protein, Total 8.2 g/dL (6.4-8.2); Sodium Level 135 mmol/L (136-145)
[2022-09-07 15:08] LABS: Endomysial Antibody IgA Negative (Negative)
[2022-09-07 15:35] LABS: Immunoglobulin A 284 mg/dL (90-386); t-Transglutaminase IgA <2 U/mL (0-3)
== END | disposition home or self-care (01) ==
PROVIDERS: PCP Family Medicine; Referring Provider Nurse Practitioner Adult Health; Visit Provider Nurse Practitioner Adult Health
DX: R19.7 Diarrhea, unspecified (principal); R00.2 Palpitations
CPT/HCPCS: 36415; 80053; 82784; 83516; 85025; 85652; 86140; 86255

== ENCOUNTER → 2022-09-07 | Outpatient (CLI) | payer OTHER, SELFPAY ==
[2022-09-12 08:57] LABS: Giardia Lamblia, Stool EIA Negative (Negative); Pancreatic Elastase, Fecal > 500 (>200)
[2022-09-12 08:58] LABS: Calprotectin, Stool 78 ug/g (0-120)
== END | disposition home or self-care (01) ==
LOC: LAB 09:15 → LABSPEC 09:18
PROVIDERS: PCP Family Medicine; Referring Provider Nurse Practitioner Adult Health; Visit Provider Nurse Practitioner Adult Health
DX: R19.7 Diarrhea, unspecified (principal); K58.9 Irritable bowel syndrome, unspecified
CPT/HCPCS: 82653; 83630; 83993; 87329

== ENCOUNTER → 2022-10-18 | Outpatient (CLI) | payer OTHER, SELFPAY ==
--- NOTE | 2022-10-18 11:22 | RAD_ITS ---
EXAM: XR CERVICAL SPINE, 4 OR 5 VIEWS CLINICAL INDICATION: NECK PAIN TECHNIQUE: Frontal, lateral and bilateral oblique views of the cervical spine. This report was created using [employer] report generation technology. COMPARISON: None. FINDINGS: VERTEBRAE: Unremarkable. Preserved vertebral body height. No acute fracture. No spondylolisthesis. Preservation of the normal cervical lordosis. No significant facet arthropathy. DISC SPACES: Unremarkable. Disc spaces are maintained. SOFT TISSUES: Unremarkable. No prevertebral soft tissue widening. LUNG APICES: Clear. RAD/Cerv Spine 4 or 5 Views IMPRESSION: No evidence of acute fracture or spondylolisthesis. Electronically Signed: Jaxson Ziegler MD at 23:50 EDT ,
--- NOTE | 2022-10-18 11:22 | RAD_ITS ---
EXAM: XR LEFT SHOULDER COMPLETE, 2 OR MORE VIEWS CLINICAL INDICATION: PAIN TECHNIQUE: Two or more views of the left shoulder. This report was created using [employer] report generation technology. COMPARISON: None. FINDINGS: BONES/JOINTS: Unremarkable. No acute fracture. No subluxation. Normal alignment. Preservation of the joint space. No sclerotic or destructive changes observed. SOFT TISSUES: Unremarkable. No soft tissue swelling or gas. No radiopaque foreign body. RAD/Shoulder min 2 Views IMPRESSION: Negative left shoulder x-rays. Electronically Signed: Jaxson Ziegler MD at 23:53 EDT ,
== END | disposition home or self-care (01) ==
LOC: MTRAD 11:21
PROVIDERS: PCP Family Medicine; Referring Provider Family Medicine; Visit Provider Family Medicine
DX: M54.2 Cervicalgia (principal); M25.512 Pain in left shoulder
CPT/HCPCS: 72050; 73030

== ENCOUNTER 2022-11-21 12:34 | Day surgery (SDC) | payer OTHER, SELFPAY ==
--- NOTE | 2022-11-21 | COLBX_PTH ---
PATIENT: LUDY YATES LOC: EN U#:[id number] AGE/SX: 27/M ROOM: RE11/21/[address]: Dr. Jelani Chopra DO : 1995 BED: DIS: 11/21/2022 SPEC #: [id number] RECD: 11/21/22 15:14 STATUS: JERARDO REJunaid #: [id number] LIAN: 11/21/22 00:[address]: Jelani Chopra DEPT: SURGICAL PATHOLOGY RECD BY: Keven Deluca ENTERED: 11/22/22 09:37 SP TYPE: COLON BX OTHR DR: Dr. Hector Yanez DO Tissues: A - Transverse colon B - Ileum, NOS C - COLON BIOPSY Procedures: Surgery Specimen Level IV HEADER OPERATION: Colonoscopy (MAC), biopsies, polypectomy PRE-OP DIAGNOSIS: Diarrhea, postprandial epigastric pain, Sifuentes?s esophagus TISSUE SUBMITTED: A ? Transverse colon polyp, B ? Terminal ileum biopsy, C ? Random colonic biopsies MICROSCOPIC DIAGNOSIS A. Transverse colon polyp, polypectomy: A fragment of colonic mucosa, no pathologic diagnosis. B. Terminal ileum, biopsy: Fragments of small intestinal mucosa, no pathologic diagnosis. C. Colon, random biopsy: Fragments of colonic mucosa, no pathologic diagnosis. VERENA:mervin 11/23/2022 MICROSCOPIC DESCRIPTION Slides are reviewed. GROSS DESCRIPTION A - Received in fixative is one container labeled with the patient's name and designated transverse colon polyp. The specimen consists of one irregular fragment of light holly soft tissue that measures 0.3 x 0.3 x 0.1 cm. The specimen is totally submitted in one cassette. B - Received in fixative is one container labeled with the patient's name and designated terminal ileum biopsy. The specimen consists of two irregular fragments of light holly soft tissue that in aggregate measure 0.5 x 0.3 x 0.1 cm. The specimen is totally submitted in one cassette. C - Received in fixative is one container labeled with the patient's name and designated random colonic biopsy. The specimen consists of multiple irregular fragments of light holly soft tissue that in aggregate measure 2.0 x 0.3 x 0.1 cm. The specimen is totally submitted in one cassette. / VERENA:mervin 11/22/2022 TC:4 CPT: 99519 x3
[2022-11-21 13:08] VITALS: BP 125/72; PULSE 90; RESP 18; TEMP 36.4; O2SAT 98; BMI 38.2
[2022-11-21] MEDS: Lactated Ringers 1,000 ML 15 ML IV (13:13)
--- NOTE | 2022-11-21 14:20 | PCM.HP.BLA ---
History and Physical Date of Admission: 11/21/22 26 M who presents to the office today for f/u EGD which was indicated for atypical chest pain, burning in throat. EGD revealed abnormal esophageal motility, Z-line irregular, +Sifuentes's on bx, neg for dysplasia. We discussed those results on the phone. He is now taking pantoprazole 40 mg once daily. Because of early satiety we got a gastric emptying study which was normal at 56 minutes. He reports no longer having chest pain or burning. He stopped diltiazem. Not having palpitations or spasms. Today his concern is epigastric churning and pain with eating dairy and sometimes other foods, and then followed by lower abd cramping and diarrhea. Can't tolerate lactose-free dairy, and Lactaid isn't sufficient.? He established with GI on 06/14/22 for atypical chest pain.? He had been thoroughly evaluated by cardiology, no cardiac etiology for the chest pain. He was prescribed diltiazem for palpitations; reports his palpitations stopped after about 10 days. His symptoms began with burning throat in June 2021, relieved with 2 wks of OTC omeprazole, but returned as soon as he stopped the med. Then in October 2021, in addition to the throat burning, he developed CP, palpitations, RUQ abd pain, diarrhea. Was put on famotidine 40 mg daily, helped with the burning throat but not the other symptoms. Still had daily diarrhea on dicyclomine. 10/2021 labs revealed elevated WBC, negative celiac, allergies to wheat and peanuts. 10/2021 RUQ US showed fatty liver, mild hepatomegaly, mildly decreased echogenicity of pancreas (normal amylase and lipase). The CP radiated through to the infrascapular region, now resolved. Sometimes felt like spasms in lower chest and upper abdomen. He then took OTC esomeprazole 20 mg, took it BID--it was more effective than famotidine; increased to 40 mg BID which resolved the CP; but too expensive so he is now on pantoprazole 40 mg bid. His diarrhea had resolved in Mar 2022. He has been gluten-free since at least 11/2021. Normal esophagram. 07/12/22 EGD Impression: ? - Abnormal esophageal motility, suspicious for ? esophageal spasm. ? - Z-line irregular, 38 cm from the incisors. ? Biopsied. ? - Normal stomach. ? - Normal second portion of the duodenum. MICROSCOPIC DIAGNOSIS Distal esophagus, biopsy: ?Gastroesophageal junctional mucosa with chronic inflammation. ?Goblet cell metaplasia consistent with Sifuentes's esophagus. ?No evidence of dysplasia. ?See comment ROS Const Constitutional: No fatigue ENT ENT: No difficulty swallowing Gastro GI: Positive for abdominal pain, change in bowel habits and diarrhea; No belching, bloating, change in stool character, coffee ground emesis, constipation, cramping, heartburn, difficulty swallowing, feeling full early, excessive flatus, incontinent of stools, Vomiting blood/hematemesis, Blood in stool, loose stools, Black,tarry stools, nausea/dyspepsia, pain with swallowing, vomiting or other Musc Musculoskeletal: No joint pain Skin Skin: No yellowing of the eye or itchy eyes Psych Psychiatric: No anxiety and No depression Endo Endocrine: No fatigue Aller/Imm Allergy/Immunologic: No itchy eyes Aravind/Lymp Hematologic/Lymphatic: No easy bleeding or easy bruising Exam Const General: cooperative and comfortable Nutritional Appearance: overweight Orientation: alert, awake and oriented x3 Eyes Sclera: sclerae normal Resp Effort & Inspection: normal respiratory effort GI Inspection: normal to inspection Palpation: soft, no masses and nontender Quality Reporting Tobacco Screening ([facility] 138) Smoking Status: Current every day smoker Assessment and Plan Assessment and Plan (1) Diarrhea: ?Status:?Chronic ?Plan: 26 yr old male with gerd, Sifuentes's esophagus; no longer having CP or palpitations or esophageal spasms; continue pantoprazole 40 mg QAM; repeat EGD 06/2023 He has a wheat allergy, he is gluten free, but he did recently eat some food containing wheat, he would like to recheck celiac, he asks about Crohn's. Hx elevated CRP. Will get labs to eval inflammation in blood and stool, eval for EPI, eval for IBD. Will contact him with results and plan. (2) Postprandial epigastric pain: ?Status:?Chronic ?Plan: see above (3) Sifuentes's esophagus: ?Status:?Acute ?Plan: Continue pantoprazole 40 mg qam, repeat EGD in 06/2023 ? ? ? Orders: Orders Comprehensive Metabolic Profil Today R19.7 - Diarrhea, unspecified ? CRP Today R19.7 - Diarrhea, unspecified ? CBC W/Diff, Automated Today R19.7 - Diarrhea, unspecified ? Erythrocyte Sed Rate Today R19.7 - Diarrhea, unspecified ? Calprotectin, Stool Today R19.7 - Diarrhea, unspecified ? Stool Lactoferrin/WBC Today K58.9 - Irritable bowel syndrome without diarrhea, R19.7 - Diarrhea, unspecified ? Celiac Disease Profile Today R19.7 - Diarrhea, unspecified ? Giardia Lamblia, Stool EIA Today R19.7 - Diarrhea, unspecified ? Pancreatic Elastase, Fecal Today R19.7 - Diarrhea, unspecified ? Miscellaneous Lab Procedure Today R19.7 - Diarrhea, unspecified ? I have examined the patient and the H&P has been reviewed. There are no clinical changes since date of exam.
[2022-11-21 14:46] VITALS: BP 123/88; BP 125/72; PULSE 81; RESP 16; TEMP 37.1; O2SAT 100
[2022-11-21 14:50] VITALS: BP 119/76; BP 125/72; PULSE 90; RESP 16; O2SAT 94
--- NOTE | 2022-11-21 14:51 | OP.COLON_ITS ---
Patient Name: Yadiel Shafer Procedure Date: 11/21/2022 2:16 PM Date of : 1995 Age: 27 Procedure: Colonoscopy Indications: Chronic diarrhea Providers: Jelani Chopra DO Referring MD: Jelani Chopra DO Medicines: Monitored Anesthesia Care Patient Profile: This is a 27 year old male. Refer to note in patient chart for documentation of history and physical. Last Colonoscopy: none. The patient's first colonoscopy is today. Complications: No immediate complications. Procedure: Pre-Anesthesia Assessment: - Prior to the procedure, a History and Physical was performed, and patient medications and allergies were reviewed. The patient is competent. The risks and benefits of the procedure and the sedation options and risks were discussed with the patient. All questions were answered and informed consent was obtained. Patient identification and proposed procedure were verified by the physician. Mental Status Examination: normal. Prophylactic Antibiotics: The patient does not require prophylactic antibiotics. Prior Anticoagulants: The patient has taken no previous anticoagulant or antiplatelet agents. ASA Grade Assessment: II - A patient with mild systemic disease. After reviewing the risks and benefits, the patient was deemed in satisfactory condition to undergo the procedure. The anesthesia plan was to use monitored anesthesia care (MAC). Immediately prior to administration of medications, the patient was re-assessed for adequacy to receive sedatives. The heart rate, respiratory rate, oxygen saturations, blood pressure, adequacy of pulmonary ventilation, and response to care were monitored throughout the procedure. The physical status of the patient was re-assessed after the procedure. After I obtained informed consent, the scope was passed under direct vision. Throughout the procedure, the patient's blood pressure, pulse, and oxygen saturations were monitored continuously. The Colonoscope was introduced through the anus and advanced to the terminal ileum. The colonoscopy was performed without difficulty. The patient tolerated the procedure well. The quality of the bowel preparation was good. Scope In: 2:29:35 PM Scope Withdrawal Time 0 hours 6 minutes 53 seconds Scope Out: 2:41:40 PM Total Procedure Duration Time 0 hours 12 minutes 5 seconds Findings: The perianal and digital rectal examinations were normal. A 5 mm polyp was found in the transverse colon. The polyp was sessile. The polyp was removed with a cold snare. Resection and retrieval were complete. Verification of patient identification for the specimen was done. Estimated blood loss was minimal. A patchy area of the terminal ileum was congested. Biopsies were taken with a cold forceps for histology. An area of mildly congested mucosa was found in the entire colon. Biopsies were taken with a cold forceps for histology. Verification of patient identification for the specimen was done. Estimated blood loss was minimal. Impression: - One 5 mm polyp in the transverse colon, removed with a cold snare. Resected and retrieved. - Congested mucosa in the terminal ileum. Biopsied. - Congested mucosa in the entire examined colon. Biopsied. Recommendation: - Discharge patient to home. - Resume previous diet. - Continue present medications. - Await pathology results. - Repeat colonoscopy in 5 years for surveillance. Procedure Code(s): --- Professional --- 01179, Colonoscopy, flexible; with removal of tumor(s), polyp(s), or other lesion(s) by snare technique 23391, 59, Colonoscopy, flexible; with biopsy, single or multiple CPT copyright 2017 [employer]. All rights reserved. The codes documented in this report are preliminary and upon mechanical specialist review may be revised to meet current compliance requirements. Jelani Chopra DO 11/21/2022 2:51:06 PM This report has been signed electronically. Number of Addenda: 0 Note Initiated On: 11/21/2022 2:16 PM
--- NOTE | 2022-11-21 14:52 | OP.CCLET_ITS ---
11/21/[address] [facility] [place] [address] Re : Colonoscopy procedure for Yadiel [facility] Dear Dr. Yanez This procedure was performed on Monday, November 21, 2022. My impressions and recommendations are as follows: Impressions : - One 5 mm polyp in the transverse colon, removed with a cold snare. Resected and retrieved. - Congested mucosa in the terminal ileum. Biopsied. - Congested mucosa in the entire examined colon. Biopsied. Recommendations : - Discharge patient to home. - Resume previous diet. - Continue present medications. - Await pathology results. - Repeat colonoscopy in 5 years for surveillance. My findings are described in the full procedure note, which is enclosed. If I can be of further assistance, please feel free to contact me at . Sincerely, Jelani Chopra, 11/21/2022 2:51:06 PM This report has been signed electronically.
[2022-11-21 14:55] VITALS: BP 100/85; BP 125/72; PULSE 91; RESP 16; O2SAT 100
[2022-11-21 15:00] VITALS: BP 113/78; BP 125/72; PULSE 80; RESP 16; TEMP 37; O2SAT 96
[2022-11-21 15:10] VITALS: BP 125/72
== END 2022-11-21 15:12 | disposition home or self-care (01) ==
LOC: EN 12:36 → AC 12:37
PROVIDERS: PCP Family Medicine; Referring Provider Internal Medicine Gastroenterology; Visit Provider Internal Medicine Gastroenterology
PROC: 0DJD8ZZ Inspection of Lower Intestinal Tract, Via Natural or Artificial Opening Endoscopic (ICD-10-PCS; CPT 45378; principal; 2022-11-21 13:55)
DX: K63.5 Polyp of colon (principal); K22.70 Barrett's esophagus without dysplasia; F17.200 Nicotine dependence, unspecified, uncomplicated; K21.9 Gastro-esophageal reflux disease without esophagitis; E66.9 Obesity, unspecified; Z79.899 Other long term (current) drug therapy
CPT/HCPCS: 45380; 45385; 88305; J7120; J2405

== ENCOUNTER → 2022-12-21 | Outpatient (CLI) | payer OTHER, SELFPAY ==
--- NOTE | 2022-12-21 09:22 | MRI_ITS ---
MR Enterography Abdomen/Pelvis WO/W Contrast 12/21/2022 10:35 AM COMPARISON: None available. CLINICAL HISTORY: K52.9 - Noninfective gastroenteritis and colitis, unspecified -- possible Crohn''s, diarrhea, ileitis on endoscopy TECHNIQUE: Following oral administration of enteric contrast and administration of glucagon, multiplanar T1 and T2 weighted images along with dynamic post-gadolinium images were obtained through the abdomen and pelvis. FINDINGS: GI Tract: Normal caliber. Slight mucosal hyperenhancement of the terminal ileum. No stricture, fistula, or obstruction. No drainable fluid collections. Liver: Unremarkable Gallbladder: Unremarkable Spleen: Unremarkable Pancreas: Unremarkable Adrenal Glands: Unremarkable Kidneys: Unremarkable Bladder: Unremarkable Reproductive: Unremarkable Lymphadenopathy: Absent Ascites: Absent Bones: No suspicious lesions MRI/Enterography Abd/Pel IMPRESSION: Slight mucosal hyperenhancement of the terminal ileum could represent terminal ileitis. No stricture, fistula, or obstruction. No drainable fluid collections. Electronically Signed: Triston Stewart MD at 21:30 EDT ,
[2022-12-21 09:47] VITALS: BP 131/82; PULSE 63; RESP 14; O2SAT 100; BMI 38.5
[2022-12-21] MEDS: Glucagon 1 MG/ML Syringe IV (11:03)
[2022-12-21 11:28] VITALS: BP 126/85; PULSE 74; RESP 16; O2SAT 100
== END | disposition home or self-care (01) ==
LOC: MRI 09:04
PROVIDERS: PCP Family Medicine; Referring Provider Nurse Practitioner Adult Health; Visit Provider Nurse Practitioner Adult Health
DX: K52.9 Noninfective gastroenteritis and colitis, unspecified (principal)
CPT/HCPCS: 74183; 96374; A9575; A4216; J1610

== ENCOUNTER → 2023-01-04 | Outpatient (CLI) | payer OTHER, SELFPAY ==
[2023-01-04 17:52] LABS: Erythrocyte Sedimentation Rate 15 mm/hr (0-20)
[2023-01-04 17:56] LABS: Rubella IgG Non-Reactive (Nonreactive)
[2023-01-04 17:58] LABS: CRP 6.59 mg/L (0.0-3.0)
[2023-01-08 16:08] LABS: Anti-Centromere B Ab <0.2 AI (0.0-0.9); Anti-Chromatin 0.2 AI (0.0-0.9); Anti-Jo <0.2 AI (0.0-0.9); Anti-Scleroderma-70 AB <0.2 AI (0.0-0.9); Anti-dsDNA Ab <1 IU/mL (0-9); RNP Ab <0.2 AI (0.0-0.9); SJOGREN'S Anti-SS-A test < 0.2 AI (0.0-0.9); SJOGREN'S Anti-SS-B test 0.8 AI (0.0-0.9); Smith Ab <0.2 AI (0.0-0.9)
[2023-01-09 00:06] LABS: B. pertussis IgG 1.72 index (0.00-0.94); HEPATITIS B SURFACE AG Negative (Negative); Hep C Antibodies Non Reactive (Non Reactive); Hepatitis A IgM Antibody Negative (Negative); Hepatitis B Core AB IgM Negative (Negative); Mumps Antibody, IgM < 0.80 AU (0.00-0.79); QNTFERON TB Mitogen Value > 10.00 IU/mL (.); QNTFERON TB Nil Value 0 IU/mL (.); QNTFERON TB1+ Ag Value 0 IU/mL (.); QNTFERON TB2+ Ag Value 0.02 IU/mL (.); QNTIFERON TB Positive Criteria Negative (Negative); V-Zoster IgG (Immunity) 2356 index (Immune >165)
== END | disposition home or self-care (01) ==
PROVIDERS: PCP Family Medicine; Referring Provider Internal Medicine Gastroenterology; Visit Provider Internal Medicine Gastroenterology
DX: K50.90 Crohn's disease, unspecified, without complications (principal)
CPT/HCPCS: 36415; 80074; 85652; 86140; 86225; 86235; 86480; 86615; 86735; 86762; 86787

== ENCOUNTER → 2024-05-12 | Outpatient (CLI) | payer OTHER, SELFPAY ==
[2024-05-12 16:26] LABS: Absolute Lymphocyte Count 2.37 X10^3/uL (0.83-4.51); Absolute Neutrophil Count 4.9 X10^3/uL (2.0-7.7); Basophil# 0.03 X10^3/uL; Basophil% 0.4 % (0-1); Eosinophil# 0.17 X10^3/uL; Eosinophils% 2.1 % (0-5); Hematocrit 48.2 % (40-54); Hemoglobin 16.5 g/dL (13.0-16.5); Lymphocyte # 2.37 X10^3/ul (0.83-4.51); Lymphocyte % 29.3 % (19-41); Mean Corp Hgb Conc 34.2 g/dL (32-36); Mean Corpuscular Hgb 28.7 pg (27.0-32.0); Mean Corpuscular Volume 83.8 fL (80-94); Mean Platelet Vol. 10.6 fl (6.2-12.0); Monocyte# 0.59 X10^3/uL; Monocyte% 7.3 % (0-10); NRBC Flagged by Analyzer 0 % (0-5); Neutrophil # 4.89 X10^3/uL (2.7-7.7); Neutrophil % 60.5 % (47-70); Platelet Count 244 K/mm3 (150-450); RBC Distribution Width CV 12.8 % (11.6-14.6); RBC Distribution Width SD 38.6 fl (35.1-43.9); Red Blood Count 5.75 M/mm3 (4.6-6.2); White Blood Count 8.1 K/mm3 (4.4-11.0)
[2024-05-12 16:55] LABS: Erythrocyte Sedimentation Rate 5 mm/hr (0-20)
[2024-05-16 16:10] LABS: ACCA 44 units (0-90); ALCA 29 units (0-60); AMCA 55 units (0-100); Deamidated Gliadin IgA 5 units (0-19); Deamidated Gliadin IgG 2 units (0-19); Endomysial Antibody IgA Negative (Negative); Immunoglobulin A 265 mg/dL (90-386); gASCA 34 units (0-50); t-Transglutaminase IgA <2 U/mL (0-3)
== END | disposition home or self-care (01) ==
LOC: LAB 15:55
PROVIDERS: PCP Family Medicine; Referring Provider Internal Medicine Gastroenterology; Visit Provider Internal Medicine Gastroenterology
DX: K50.90 Crohn's disease, unspecified, without complications (principal); I77.6 Arteritis, unspecified
CPT/HCPCS: 36415; 82784; 83516; 85025; 85652; 86036; 86140; 86255; 86671